=== PATIENT | female | born 1985 | race Hispanic/Latino ===

== ENCOUNTER 2019-03-10 09:00 | Outpatient (RCR) | payer OTHER, SELFPAY ==
--- NOTE | 2019-03-10 09:05 | BH.SGPN.GN ---
Behaviors/Verbalizations/Mental Status: []Client alert and oriented, casually dressed and groomed. Eye contact good. Motor activity appropriate. Speech within normal limits. Affect constricted, mood euthymic. Thoughts linear, logical, no signs of hallucinations or delusions. Reviewed client?s symptom tracker, no risk for suicidal ideation, plan, or intent as of 03/10/19. Client Response/Progress/Benefit: []Client responded well to session, attentive and engaged throughout. Client reports feeling ?hopeful? today. Client shared she has is hopeful to be in PHP and stated, ?I?m going to do the best I can.? Client recently came from inpatient and reported she wants to continue working on staying positive and not self-deprecating. Client reported mental health treatment is new to her, so she feels overwhelmed and stressed at times because client does not want to have setbacks. Client stated she also has a limited time to improve her mental health before returning to work which is stressful to client as well. The group provided client with supportive statements and encouragement. Client appeared to benefit from receiving support and connecting with peers. Client?s first day in PHP. Client to continue PHP to prevent decompensation and increase mood stability to help client return to her baseline of functioning.
--- NOTE | 2019-03-10 10:23 | BH.SGPN.GN ---
Behaviors/Verbalizations/Mental Status: [Client alert and oriented, casually dressed. Eye contact good. Motor activity appropriate. Speech within normal limits, soft. Affect congruent, mood depressed and anxious. Thoughts linear, logical, no signs of hallucinations or delusions. ] Client Response/Progress/Benefit: [Pt receptive of session, engaged in discussion on stress, and indicated connecting with various aspects of the stress curve discussed. Pt expressed that she is often in the distress zone and noted that overwhelming stress is what led to her being hospitalized and ultimately beginning IOP tx. Pt worked with the group to identify impacts of unmanaged stress on physical and mental health. She shared that stress can easily build and lead to burnout or crisis when priorities are not able to continue to be met. She provided specific examples regarding the stress of trying to maintain daily life responsibilities without help. Pt appeared to benefit from gaining awareness of current stressors and learning about the impact stress has on overall wellbeing. Participated in activity identifying current stressors impacting mental health. Pt's current stressors include: communicating with supports, finances, her mental health, and returning to work. Progress noted in pt increased awareness of current stressors and impact they have on management of mental health. Recommended continued IOP tx to decrease depression and reduce anxiety sx, increase healthy coping skills, and prevent decompensation.] Narrative Note: []
--- NOTE | 2019-03-11 09:05 | BH.SGPN.GN ---
Addendum entered and electronically signed by AMY Beltre 11/16/19 09:13: Addendum entered to include missing Group Psychotherapy Session Note #2. Group Topic: []Boundaries # of Participants: []9 Start Time: 10:18am Duration: 52 minutes Production Machine Tender: AMY Gabriel-S Goal of Group: []To increase understanding of importance of boundaries and gain awareness of how boundaries can impact mental health. Staff Interventions: Therapist facilitated group discussion about defining boundaries. Therapist led discussion about importance of boundaries, assisting group members with identifying how boundaries can impact mental health. Therapist provided psychoeducation about the different types of boundaries. Therapist led activity to increase self-awareness of current boundary setting behaviors. Behaviors/Verbalizations/Mental Status: Client alert and oriented, casually dressed and groomed. Eye contact fair. Motor activity appropriate. Speech within normal limits. Affect constricted, mood depressed and anxious. Thoughts linear, logical, no signs of hallucinations or delusions. Client Response/Progress/Benefit: Client responded well to session, attentive and participating in small group discussion. Group identified the benefits to setting boundaries as well as the consequences of not setting healthy boundaries. Client reported she struggles with setting boundaries with others because will put others needs ahead of her own. Client stated when it comes to sharing her thoughts and feelings, she tends to share very little with others. Client engaged during discussion of the different types of boundaries and engaged in the self-assessment activity. Client seemed to benefit from increased awareness how poor boundaries can negatively impact mental health. Client to continue PHP tx to increase healthy coping skills, prevent decompensation, and increase awareness of distorted thoughts Original Note: Behaviors/Verbalizations/Mental Status: []Client alert and oriented, neatly dressed and groomed. Eye contact good. Motor activity appropriate. Speech within normal limits. Affect flat, mood anxious Thoughts linear, logical, no signs of hallucinations or delusions. Reviewed client?s symptom tracker, no risk for suicidal ideation, plan, or intent as of 03/11/19. Client Response/Progress/Benefit: []Client responded well to session, receptive to feedback to support from peers. Client reports feeling ?content and hopeful? today although client shared she has been experiencing nightmares and potential trauma triggers. Client?s stressors are that she is being weaned off a sleep medication and feeling discouraged ?by how long getting better will take.? Client stated she tends to ?give myself time frames to do things? but now client realizes that bettering her mental health will take longer than two weeks. Client receptive to feedback from peers on realistic expectations and self-compassion. Client?s mental health wins include being assertive with her mother who was trying to disrespect client?s boundaries and making it to group today. Client appeared to benefit from connecting with peers and receiving feedback. Progress limited, client?s second day of PHP. Client to continue PHP to prevent decompensation and increase mood stability.
--- NOTE | 2019-03-11 09:41 | BH.MTP_ITS ---
Master Treatment Plan - Patient Information Program Physician:: Dr. Kavon Wilks Primary Therapist:: CATHI Reza - Psychiatric Diagnoses Psychiatric Diagnoses:: Major depression, recurrent, in partial remission; NEDA; adjustment disorder with anxiety and depression Diagnosis Code(s):: F 33.2 - Estimated LOS Estimated LOS (in weeks):: 1 Problem/Goal #1 - Problem/Goal #1 Stated Goal:: Client will increase mood stability and decrease depressive symptoms, and agitation due to Major Depression through PHP Program. Description of Barriers: Stigma associated with mental illness, relationship conflicts, hx of depression, lack of motivation, few supports. Functional Impact: The patient is a 33-year old female who was referred to the partial hospitalization program at [facility] by [facility] following discharge from inpatient hospitalization due to suicidal ideation. Pt reports sx of panic, loss of motivation and interest, isolation, and passive thoughts of . Pt has a history of depression and anxiety. Currently daily functioning is severely impacted by depression and anxiety. Pt reports symptoms effecting ability to work, led to crying spells, impacted relationship with supports, and effected ability to function at baseline. Goal Relevant Strengths/Supports: motivated, personable, sense of humor, willing to try new things to improve mental health sx - Objectives Objective #1 Stated Objective: Client will identify 2-3 triggers and 2-3 coping skills to reduce depressive symptoms that lead to negative thinking Interventions: Through individual and group counseling will help client identify her triggers and teach client various coping strategies to effectively cope with depressive symptoms. Discharge Criteria: Client will have achieved this goal when can identify at least 2 triggers, verbalize two healthy coping strategies and defeat suicidal ideation. Target Date: 03/18/19 Review Date: 03/18/19 Problem/Goal #2 - Problem/Goal #2 Stated Goal:: Client will reduce overall frequency, intensity, and duration of the anxiety so that daily functioning is not impaired. Description of Barriers: Stigma associated with mental illness, relationship con flicts, hx of depression, lack of motivation, few supports. Functional Impact: The patient is a 33-year old female who was referred to the partial hospitalization program at [facility] by [facility] following discharge from inpatient hospitalization due to suicidal ideation. Pt reports sx of panic, loss of motivation and interest, isolation, and passive thoughts of . Pt has a history of depression and anxiety. Currently daily functioning is severely impacted by depression and anxiety. Pt reports symptoms effecting ability to work, led to crying spells, impacted relationship with supports, and effected ability to function at baseline. Goal Relevant Strengths/Supports: motivated, personable, sense of humor, willing to try new things to improve mental health sx - Objectives Objective #1 Stated Objective: Client will learn and implement 2-3 calming skills to reduce overall anxiety and manage anxiety symptoms. Interventions: Through individual and group counseling client will learn calming/relaxation skills and practices relaxation skills daily Discharge Criteria: Client will have achieved this goal when can verbalize at least 2 calming skills and implement those skills. Target Date: 03/18/19 Review Date: 03/18/19
--- NOTE | 2019-03-11 14:02 | PCM.HP.BLA ---
History and Physical Date of Admission: 03/10/19 Chief Complaint: The patient is a 33-year old female who is beginning treatment in the partial hospitalization program at [facility]. She has a history of depression and anxiety. She was recently discharged from [facility] for suicidality. History of Present Illness: The patient was admitted to [facility] from February 28 until March 04, 2019. Prior to admission police had been called to the home and she had asked them if they would kill her if she attacked them. She stated that she had become increasingly depressed over the past 3 weeks prior to admission. She had been stressed out by work and financial problems. Her boss had been off on medical leave and she had to do double the amount of work. Also, she felt overwhelmed by childcare responsibilities at home. She admits that she had no coping skills to deal with her stresses. She improved during her hospitalization and now reports that her depression is better. She further reports that she has had problems with depression most of her life. Her depression had been constant for the past 6months. She further reports chronic problems with low self-esteem. Patient further reports that she has had problems with anxiety most of her life. She is a big worrier and tends to worry about many different things. Her anxiety level has improved since hospital discharge. Past Psychiatric History: She has had only the above psychiatric admission to [place]. She has never made any suicide attempts. She denies any history of cutting behavior. She was first treated 7 years ago for mental health problems through counseling. She first started to receive psychiatric medicines last year. Prior medicines have included Klonopin and Wellbutrin. Current Psychiatric Medications: Celexa 10 mg daily, gabapentin 300 mg twice daily, Latuda 80 mg daily, propranolol 12.5 mg daily Medical History: Patient is obese. She has diabetes treated with glipizide and metformin. She has sleep apnea treated with CPAP. Allergies: Chloramphenicol, vancomycin Family Psychiatric History: The patient's mother and grandmother have had problems with depression and anxiety. Personal/Social History: Patient was born in [place]. She did not wish to discuss when she came to the [place]. He was raised by her mother and reports a poor relationship with her over the years. She said her mother has not been supportive and offered aggressive parenting.. She recently decided to reconnect with her mother. She is an only child. Has an AA degree. 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 She is currently on medical leave. Currently lives with her girlfriend and the girlfriend's 2 children. She has been together with her partner for the past 4 years and reports a really good relationship with her. The partner has 2 children and the patient is helping raise them. There is no history of drug or alcohol problems. Review of Systems: Psychiatry: Improving depression and anxiety. Is not suicidal. There is no psychosis. She is cognitively intact. Constitutional: She is obese and her weight has been steady. Her energy level is improving. Endocrine: She has diabetes. He also has sleep apnea. All other systems reviewed and are negative. Examination: The patient presents as a somewhat socially stiff woman who is in no acute distress. She demonstrates fair social skills. She is appropriately dressed and groomed. Vital signs: Height 5 feet 2 inches, weight 241 pounds, respirations 17. Musculoskeletal: No muscle weakness or joint pain. Her speech is fluent and spontaneous. Her language is intact. Her judgment is fair and her insight is good. He is alert and oriented x3. Affect is neutral and somewhat flat. Her recent and remote memory are intact. She demonstrates a normal attention span and concentration. She has normal thought processes and abstract reasoning. Her associations are intact. There are no hallucinations or delusions and she is not suicidal. She demonstrates normal age-appropriate fund of knowledge. Mental Status Examination: The patient presents as a somewhat socially stiff woman who is in no acute distress. She demonstrates fair social skills. Her thoughts are logical and coherent. She reported improvement in depression and anxiety. She is not suicidal. There is no psychosis. She is cognitively intact. Diagnoses: [] [place] I: Major depression, recurrent, in partial remission; NEDA; adjustment disorder with anxiety and depression [place] II: Deferred [place] III: Obesity, diabetes, sleep apnea Plan: I am continuing the patient's gabapentin, Celexa, Latuda and Tenormin at the current doses. She will participate in the intensive outpatient groups. I will see her again for follow-up.
--- NOTE | 2019-03-11 14:18 | HP.PCM_ITS ---
History and Physical Date of Admission: 03/10/19 Chief Complaint: The patient is a 33-year old female who is beginning treatment in the partial hospitalization program at [facility]. She has a history of depression and anxiety. She was recently discharged from [facility] for suicidality. History of Present Illness: The patient was admitted to [facility] from February 28 until March 04, 2019. Prior to admission police had been called to the home and she had asked them if they would kill her if she attacked them. She stated that she had become increasingly depressed over the past 3 weeks prior to admission. She had been stressed out by work and financial problems. Her boss had been off on medical leave and she had to do double the amount of work. Also, she felt overwhelmed by childcare responsibilities at home. She admits that she had no coping skills to deal with her stresses. She improved during her hospitalization and now reports that her depression is better. She further reports that she has had problems with depression most of her life. Her depression had been constant for the past 6months. She further reports chronic problems with low self-esteem. Patient further reports that she has had problems with anxiety most of her life. She is a big worrier and tends to worry about many different things. Her anxiety level has improved since hospital discharge. Past Psychiatric History: She has had only the above psychiatric admission to [facility]. She has never made any suicide attempts. She denies any history of cutting behavior. She was first treated 7 years ago for mental health problems through counseling. She first started to receive psychiatric medicines last year. Prior medicines have included Klonopin and Wellbutrin. Current Psychiatric Medications: Celexa 10 mg daily, gabapentin 300 mg twice daily, Latuda 80 mg daily, propranolol 12.5 mg daily Medical History: Patient is obese. She has diabetes treated with glipizide and metformin. She has sleep apnea treated with CPAP. Allergies: Chloramphenicol, vancomycin Family Psychiatric History: The patient's mother and grandmother have had problems with depression and anxiety. Personal/Social History: Patient was born in [place]. She did not wish to discuss when she came to the [place]. He was raised by her mother and reports a poor relationship with her over the years. She said her mother has not been supportive and offered aggressive parenting.. She recently decided to reconnect with her mother. She is an only child. Has an AA degree. 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 She is currently on medical leave. Currently lives with her girlfriend and the girlfriend's 2 children. She has been together with her partner for the past 4 years and reports a really good relationship with her. The partner has 2 children and the patient is helping raise them. There is no history of drug or alcohol problems. Review of Systems: Psychiatry: Improving depression and anxiety. Is not suicidal. There is no psychosis. She is cognitively intact. Constitutional: She is obese and her weight has been steady. Her energy level is improving. Endocrine: She has diabetes. He also has sleep apnea. All other systems reviewed and are negative. Examination: The patient presents as a somewhat socially stiff woman who is in no acute distress. She demonstrates fair social skills. She is appropriately d ressed and groomed. Vital signs: Height 5 feet 2 inches, weight 241 pounds, respirations 17. Musculoskeletal: No muscle weakness or joint pain. Her speech is fluent and spontaneous. Her language is intact. Her judgment is fair and her insight is good. He is alert and oriented x3. Affect is neutral and somewhat flat. Her recent and remote memory are intact. She demonstrates a normal attention span and concentration. She has normal thought processes and abstract reasoning. Her associations are intact. There are no hallucinations or delusions and she is not suicidal. She demonstrates normal age-appropriate fund of knowledge. Mental Status Examination: The patient presents as a somewhat socially stiff woman who is in no acute distress. She demonstrates fair social skills. Her t houghts are logical and coherent. She reported improvement in depression and anxiety. She is not suicidal. There is no psychosis. She is cognitively intact. Diagnoses: [] [place] I: Major depression, recurrent, in partial remission; NEDA; adjustment disorder with anxiety and depression [place] II: Deferred [place] III: Obesity, diabetes, sleep apnea Plan: I am continuing the patient's gabapentin, Celexa, Latuda and Tenormin at the current doses. She will participate in the intensive outpatient groups. I will see her again for follow-up.
--- NOTE | 2019-03-11 14:19 | BH.DR.ITP ---
Initial Treatment Plan - Patient Information Visit Information: ADMISSION DATE: EXPECTED LOS: 4-6 weeks Diagnoses:: Recurrent major depression; NEDA; adjustment disorder with anxiey - Problems/Symptoms Problem #1:: Depression Symptom:: History of low mood; anhedonia; sucidiality; low energy Problem #2:: anxiety Symptom:: feelings of anxiety, being overwhelmed; lacking coping skills
--- NOTE | 2019-03-11 16:19 | BH.MDN_ITS ---
Multi-Disciplinary Note - Note 30-min Individual Time Started:: 12:43 Date: 03/11/19 Purpose of session/treatment goals addressed:: The purpose of this session was to build rapport with pt as well as gather information on pt's mental health history, current stressors, symptoms, means for coping, and treatment goals. Eye Contact:: Good Motor Activity:: Appropriate Appearance:: Neat, Casual Speech:: Appropriate Mood:: Anxious, Depressed Affect:: Congruent Thoughts:: Linear, Logical, Racing, No evidence of hallucinations/delusions noted Staff Interventions:: Therapist used active listening and open-ended questions to explore client's current stressors, symptoms, and supports. Gathered background information regarding prior mental health tx history, and explored techniques that have been effective in the past. Therapist used strengths perspective to build rapport and help client identify positives and personal resilience factors. Therapist provided emotional validation and psychoeducation regarding impact of substances in maintaining mental health symptoms. Therapist assisted client in identifying overall treatment goals. Client Response:: Pt receptive of session, willing to discuss factors resulting in referral to [facility] treatment and impacting current mental health functioning. Pt shared that she has struggled with her mental health, specifically that of depression and anxiety, for the past month prior to program admission. Pt reports that financial issues, ongoing relationship tension, childcare problems, and overwhelming occupational stress had culminated to the point of crisis and pt felt ?trapped? with no real way to manage current stressors. Shares she was admitted to [facility] for inpatient hospitalization from February 28- due to increased hopelessness resulting in overwhelming anxiety and suicidal ideation. Reports that her significant other had call the technical project manager when pt expressed feeling suicidal and pt asked the police officers to shoot her. Pt reports that inpatient treatment was helpful and that she has decided she wants to live for both herself and her family. Noted primary stressor as occupational as her boss is on medical leave and pt has been left to complete her bosses duties as well as her own. Additional stressor is finances and pt reports the family is on the verge of bankruptcy. Pt currently endorses symptoms of depression and anxiety including: isolation, avoidance, increased negative thoughts, panic attacks, and irritability. Pt shared her increased anxiety symptoms and physical health have prevented her from working and lead to ongoing conflict with her significant other. She did well to respond to psychoeducation on cycle of depression and noted that while in PHP program she wants to work on maintaining safety and reducing depression and suicidal ideation, improve ability to manage anxiety, and increase self-esteem. Risks/Concerns:: Pt recently discharged from [facility] due to suicidal ideation on 03/04/19. Denies any active suicidal ideation, plan, and intent as of 03/11/19. Future oriented and indicates motivations to live, and ability to maintain safety and able to identify protective factors. Progress Toward Goals/Plan:: Pt new to PHP tx and therefor unable to make much progress. Pt is able to identify factors impacting mental health and reinforcing mh sx, Pt appears motivated to improve healthy coping and shared a desire to reduce depression, increase anxiety management skills, as well as improve overall sense of self-worth. Treatment goals identified to be learning healthy coping skills, reducing anxiety and depression, and improving self-esteem. Client to continue PHP to maintain safety, improve insight and use of healthy coping mechanisms, as well as promote mood stability. Time Stopped:: 13:22
--- NOTE | 2019-03-14 11:25 | BH.SGPN.GN ---
Addendum entered and electronically signed by AMY Beltre 11/16/19 10:26: Addendum entered to include missing Group Psychotherapy Session Note #2. Date: 03/14/19 Start: 1025 Duration: 50 minutes Customer Pricing Manager: Adela Bell Group Topic: Crisis # of Participants: 10 Goal of Group: To increase understanding of a crisis and improve client?s awareness of personal warning signs before crisis. Staff Interventions: Therapist facilitated group discussion about defining a crisis and specifying various events that are considered a crisis. Therapist led the group in discussion about identifying personal warning signs before a crisis and importance of being aware of those signs. Therapist provided support by using active listening and providing feedback. Behaviors/Verbalizations/Mental Status: Client alert and oriented, casually dressed and groomed. Eye contact fair. Motor activity appropriate. Speech within normal limits. Affect constricted, mood dysthymic. Thoughts linear, logical, no signs of hallucinations or delusions. Client Response/Progress/Benefit: Client engaged participant as evidenced by client contributing discussion and listening attentively to others. When processing quote client stated willpower can help you power through a difficult moment. However, client stated she is recognizing sometimes she puts too much pressure on herself which results in a personal crisis. Connected with discussion on how coping with external crisis by using unhealthy coping skills could lead to personal crisis. Client completed the personal warning signs worksheet and identified crisis warning signs. Client reported she does not have any awareness as to what warning signs occur first, stated she is still learning more about herself. Benefited from group by increasing awareness of crisis and personal warning signs. Will continue PHP tx to increase healthy coping, increase self-awareness and prevent decompensation. Original Note: Behaviors/Verbalizations/Mental Status: []Client alert and oriented, neatly dressed and groomed. Eye contact good. Motor activity appropriate. Speech within normal limits. Affect constricted, mood anxious. Thoughts linear, logical, no signs of hallucinations or delusions. Client Response/Progress/Benefit: []Client responded well to session as evidenced by client listening attentively to others and sharing when prompted. Client identified her warning signs for crisis and gained further awareness of her earliest warning signs. Client biggest warning signs included unusual drop in functioning, uncontrollable worries, and negative thinking. Client recognized that awareness of these warning signs can prevent further crisis and help client utilize healthy coping skills to break the cycle. Client created a crisis action plan to help client better manage warning signs for crisis. Client?s plan included coping skills such grounding techniques, healthy distractions, and positive self-talk. Client selected three items that will help her remember these crisis interventions including a rock, a flower, and a post-it note that says ?you got this.? Client appeared to benefit from creating a crisis action plan and increasing her self-awareness. Client to continue IOP to prevent decompensation, reduce anxiety, and improve functioning.
--- NOTE | 2019-03-14 16:20 | BH.MDN ---
Multi-Disciplinary Note - Note 60-min Individual Time Started:: 12:33 Date: 03/14/19 Purpose of session/treatment goals addressed:: Purpose of this session was to assessed current symptoms, stressors, and means for coping. Another purpose was to discuss the cycle of depression and impact of thoughts and behaviors in maintaining depressive sx. Introduced Behavior Activation. Eye Contact:: Fair Motor Activity:: Restless - AEB shifting in seat and looking aroung at items in room Appearance:: Casual Speech:: Appropriate Mood:: Anxious, Depressed Affect:: Congruent Thoughts:: Linear, Logical, No evidence of hallucinations/delusions noted Staff Interventions:: Therapist asked open ended and furthering questions to elicit information regarding current sx, stressors, and daily routine behaviors. Utilized reflective listening and provided empathic responses to validate emotions and frustrations. Provided psychoeducation on the cycle of depression and factors contributing to maintaining depression. Introduced concept of behavior activation and provided pt with homework to begin identifying pleasurable activities. Client Response:: Pt receptive of session, engaged throughout. She discussed ongoing issues in managing sx of depression and described struggling to get out of bed over the weekend. Pt went on to indicate that her partner had asked her to help around the house and that she had been invited to a family get together, however did not have the energy or desire to do either of these. Pt shared creating excuses to stay in bed and avoid doing things with her family. She expressed I feel like I'm letting everyone down and indicated that this often results in her veiwing herself as a burden. Therapist provided psychoeducation on the cycle of depression and pt did well to identify the impact of her isolating behaviors on reinforcing negatve thoughts of self which cause depression. Therapsit and pt spent majority of session discussing strategies for begining to break depressive cycle through behavior activation. Pt indicated that struggling to identify any potential enjoyable activities she could engage in and noted feeling as though everything takes work when all she has the desire to do is sleep. Worked to identify strategies to promote healthy behaviors that will aid in reducing isolation and begin identifying activities she may be willing to try. Pt agreeable to completing the assigned homework of identifying pleasureable activities either from a list or those she comes up and rating them by ease and suspected level of enjoyment. Risks/Concerns:: No risks or concerns at this time. Pt denies active SI, plan, and intent as of 03/14/19. Identifies family as motivations to live and wanting to improve her self-esteem. Indicates ability to maintain safety and willing to reach out for help should she feel unable to at anytime. Progress Toward Goals/Plan:: Some progress noted AEB reports of increased desire to improve mental health sx, decreased hopelessness and denial of SI. Pt does however continue to struggle with significant depression associated with reports of apathy, lack of motivation, and self-deprication. Appears to have good insight into impact self-depricating thoughts and isolative behaviors have on progress. Plan is to remain in PHP level of care to decrease depression, maintain safety and stability, as well as actively work towards improving self esteem. Time Stopped:: 13:22
--- NOTE | 2019-03-15 09:10 | BH.SGPN.GN ---
Behaviors/Verbalizations/Mental Status: [] Eye contact is good. Motor activity is appropriate. Appearance is casual. Speech is Appropriate. Mood is anxious/depressed. Affect is congruent. Thoughts are linear and logical. No evidence of psychosis. Reviewed daily check in sheet and no reports of suicidal ideations. Client Response/Progress/Benefit: [] Pt spoke at time during the group discussion. Attentive. Shared with the group that she had an increase in motivation and energy yesterday stating I didn't lay in bed all day. Groups have helped increased activity and provide structure. Emotion for today is nervous. Shared that she is anxious about returning to work next week. She has been off work since 02/25/19 and prior to her inpatient admission. Reports that she is unsure of the amount of work which awaits her. Continues to report that she will return to work full-time on 03/21/19 and get the most out of what I can in [facility]. Shared that she is working on strategies while in [facility] to help with stressor of returning to work. Benefited from group support and encouragement. Will continue in PHP to maintain safety, increase coping skills, and prevent decompensation. Narrative Note: []
--- NOTE | 2019-03-15 10:04 | BH.MDN_ITS ---
Multi-Disciplinary Note - Note 45-min Individual Time Started:: 08:12 Date: 03/15/19 Purpose of session/treatment goals addressed:: Assessed current symptoms and reviewed homework on identifying pleasurable activities. Created Crisis Safety Plan. Eye Contact:: Good Motor Activity:: Appropriate, Restless - AEB pt bouncing leg, fidgeting in seat Appearance:: Neat, Casual Speech:: Appropriate Mood:: Anxious, Depressed Affect:: Congruent Thoughts:: Linear, Logical, No evidence of hallucinations/delusions noted Staff Interventions:: Therapist asked open ended and furthering questions to elicit information regarding current sx, stressors, and progress. Utilized HI techniques to elicit change behaviors, identify barriers, and complete Crisis Safety Plan. Reviewed homework and discussed importance of identifying warning signs/triggers in preventing depression escalation. Client Response:: Pt met with this therapist to continue making progress in identifying healthy coping mechanisms and strategies for reducing depression. Pt discussed spending time reviewing her homework with her significant other (s/o) on previous night and discussing what she has been working on in both individual and group sessions. Pt indicated that her s/o had been helpful in identifying activities that would be both enjoyable and feasible. She indicated that they are making plans to begin going to the park when the weather is nice and spendi ng time watching the sunset on occassion. Pt additionally discussed identifying going to plays as something she might enjoy but is worried it will become a trauma trigger. Discussed with this therapist her concerns and worked on strategies to prevent identifying all plays with one negative experience when working with someone who cause emotional pain on the set of a play in the past. Therapist introduced Crisis Safety Plan and discussed importance of creating a plan for moments she is struggling with increased depression. Identified warning signs of increased isolation, negative self talk, restlessness, and feeling like a burden. Pt did well to work with therapist on identifying effective coping strategies and protective factors. Indicated that several of the enjoyable activities identified in homework would be helpful in coping such as walking, listening to music, and watching something funny. Discussed postive statements pt may tell herself during times of increased depression. Pt agreeable to review safety plan with her supports and place in an accessible area. Risks/Concerns:: No risks or concerns noted. Denies any active suicidal ideations, plan, or intent as of 03/15/19. Reports thoughts of being a burden though does not report this leading to thoughts of . Protective factors reported. Future-oriented. Reports improved mood since starting IOP. Progress Toward Goals/Plan:: Pt reports progress in decreasing depression and increasing hope, denies any active SI since beginning PHP program.. Limited coping skills to aid in management of depression though is actively working to increase coping repertoire and decrease negative self-talk. Plan is to continue in PHP to increase coping skills, maintain safety, stabilize mood, and improve daily functioning. Time Stopped:: 08:59
--- NOTE | 2019-03-15 10:15 | BH.SGPN.GN ---
Behaviors/Verbalizations/Mental Status: []Client alert and oriented, casually dressed and groomed. Eye contact good. Motor activity appropriate. Speech within normal limits. Affect flat, mood anxious. Thoughts linear, logical, no signs of hallucinations or delusions. Client Response/Progress/Benefit: []Client responded well to session, providing occasional input to discussion. Client commented on the quote and shared the load one carries is ?life...work, kids, money.? Client reported one?s response and emotions determine how we carry the load without breaking. Client reported in order to ?carry the load? one needs coping skills. Client shared healthy coping skills have more benefits. However, most people turn to unhealthy coping skills such as overworking or avoidance because of the short-term relief, but it leads to burnout and more depression. Client engaged in the activity and was able to make the connection that one must have a strong base of internal and external coping skills. Client realized that during the activity her group kept looking for the ?quick fix? which they were able to connect to reverting to using coping skills that are easy, but not always healthy. Client appeared to benefit from increasing awareness of the importance of developing healthy coping skills. Progress noted as client reports increased awareness, but she can continue to benefit from increasing her coping skills to manage depressive symptoms.
--- NOTE | 2019-03-15 11:20 | BH.SGPN.GN ---
Behaviors/Verbalizations/Mental Status: [Pt eye contact good, casually dressed, motor activity appropriate, speech normal rate and tone, mood anxious and depressed, congruent affect, thoughts linear and intact, no evidence of delusions or hallucinations.] Client Response/Progress/Benefit: [Pt mostly attentive to group discussion on different types of coping skills AEB maintaining eye contact and taking notes throughout. She identified connecting with the importance of practicing using different healthy coping skills to reduce difficulty in doing so and improve likelihood of use during crisis. Indicated often struggling with falling back on unhealthy habits of isolation and negative self-talk. Pt seemed to benefit from increasing repertoire of healthy coping skills and displayed progress in ability to recognize types of coping skills she would benefit from further developing. Identified wanting to improve use of self-love related coping skills by practicing self-forgiveness as she feels she is unnecessarily hard on herself. Pt recommended to continue IOP level of care to promote utilization of healthy coping skills, reduce depression, as well as prevent decompensation and maintain safety.] Narrative Note: []
== END 2019-03-15 23:59 ==
LOC: BHPHP 09:00
PROVIDERS: Referring Provider Psychiatry & Neurology Psychiatry; Visit Provider Psychiatry & Neurology Psychiatry
DX: F41.1 Generalized anxiety disorder (principal); F43.23 Adjustment disorder with mixed anxiety and depressed mood; Z79.899 Other long term (current) drug therapy; Z79.84 Long term (current) use of oral hypoglycemic drugs; E66.9 Obesity, unspecified; E11.9 Type 2 diabetes mellitus without complications; G47.30 Sleep apnea, unspecified
CPT/HCPCS: H0035; 90832; 90834; 90837; G0410

== ENCOUNTER 2019-03-16 09:00 | Outpatient (RCR) | payer OTHER, SELFPAY ==
--- NOTE | 2019-03-16 09:10 | BH.SGPN.GN ---
Behaviors/Verbalizations/Mental Status: [] Eye contact is good. Motor activity is appropriate. Appearance is casual. Speech is Appropriate. Mood is depressed. Affect is flat. Thoughts are linear and logical. No evidence of psychosis. Reviewed daily check in sheet and no reports of suicidal ideations or intent Client Response/Progress/Benefit: [] Pt spoke at times during the group discussion. Brought up topic of what to disclose to co-workers when she returns to work. Worried about having a great deal of work when she returns. Fearful this will lead to regression of MH symptoms however reports that she has to return to work full-time next week. Depressed yesterday and isolated, however reports that she downloaded an [facility] and plans to begin some meditation and mindfulness today. Emotion for today is anxious. Limited progress. Pt continues to be adamant to return to work next week. Fearful she will not be able to manage the stress however unwilling to continue in PHP/IOP. Benefited from group feedback. Will continue in PHP to prevent decompensation, stabilize mood, improve functioning, and attempt to transition back to work. Narrative Note: []
--- NOTE | 2019-03-16 10:05 | BH.SGPN.GN ---
Behaviors/Verbalizations/Mental Status: [] Eye contact is good. Motor activity is appropriate. Appearance is casual. Speech is Appropriate. Mood is depressed. Affect is flat. Thoughts are linear and logical. No evidence of psychosis. Client Response/Progress/Benefit: [] Pt was an active participant in group discussion and activity. Worked together with the group to define and identify difference between internal and external conflict. Discussed the benefits of conflict which includes; increases communication, personal growth, conflict addresses issues, and appropriate conflict can increase relationships and improve mental health. Pt worked with group to identify barriers to overcoming conflict which included; fear, perceived failure, belief that truth or conflict will hurt others, dwelling on interactions, catastrophizing conflict, and belief that conflict is failure in relationships. Attentive during psychoeducation on different conflict styles such as avoiding, accommodating, competing, and collaborative. Reviewed benefits and drawbacks to each style. Benefited as he was able to identify and define conflict as well as increase awareness of how conflict style impacts his mental health. Will continue in IOP to maintain safety, prevent decompensation, increase coping skills, stabilize mood, and transition back to work. Narrative Note: []
--- NOTE | 2019-03-16 11:20 | BH.SGPN.GN ---
Behaviors/Verbalizations/Mental Status: []Client alert and oriented, casually dressed and groomed. Eye contact good. Motor activity appropriate. Speech within normal limits. Affect congruent, mood anxious. Thoughts linear, logical, no signs of hallucinations or delusions. Client Response/Progress/Benefit: []Client responded well to session, active participant. Client further processed her conflict resolution style. Client reported she is mostly competing, but she is working on being collaborative. 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 Client reported her relationships have been negatively impacted by being competing, so client has worked to ?make amends.? Client was encouraged to practice being collaborative during the active. Client able to compromise, but also share her perspective. Client helped the group identify things that positively and negatively impact conflict resolution. Client agreed with group that good communication and focusing on one thing at a time helped effectively resolve conflict. Client helped the group identify strategies to better manage conflict and set a goal to take a step back when in conflict to better manage her emotions. Client appeared to benefit from learning conflict resolution strategies and increasing self-awareness. Progress noted as client reports practicing conflict resolution skills to improve her relationships. However, client continues to struggle with depressive symptoms and can benefit from ongoing treatment.
--- NOTE | 2019-03-16 15:13 | BH.MDN ---
Multi-Disciplinary Note - Note 60-min Individual Time Started:: 12:45 Date: 03/16/19 Purpose of session/treatment goals addressed:: Purpose of this session was to assess current sx, stressors, and pt perception of tx goal progress. Another purpose was to begin to work on identifying cognitive distortions and thought-challenging skills. Eye Contact:: Good Motor Activity:: Appropriate Speech:: Appropriate Mood:: Anxious, Depressed Affect:: Congruent Thoughts:: Linear, Logical, No evidence of hallucinations/delusions noted Staff Interventions:: Asked open-ended and furthering questions to elicit information regarding pt perception of sx, stressors, and tx goal progress. Listened reflectively and provided empathic responses to validate pt emotions regarding ongoing sx. Utilized IN techniques to elicit change behaviors. Provided psycho education and handout materials on cognitive distortions, as well as introduced thought challenge strategies. Gave homework to complete a thought log. Client Response:: Pt receptive of session, engaged throughout. Completed homework to review Crisis Safety Plan with her partner and indicated that this had been a positive experience as her partner was able to aide pt in identifying additional resources and positive self-talk statements to use in times of increased depression. Pt shared receiving an unexpected text from work which indicated that her return to work date would be 03/28/19 instead of 03/21/19. She shared initially becoming anxious about this as finances are tight but was able to use thought challenge skills she has learned in php program to challenge herself to see the potential positives. Identified benefits of extended leave as having more time to focus on improving her own mental health and attitude towards self. Noted her biggest concern as ongoing issues with negative self-talk and high expectations of herself. She worked with therapist to review depression cycle and role of thoughts in re-enforcing depressive sx as well as began discussion on cognitive distortions. Pt indicated identifying with a majority of the distorted thought patterns described such as ?all or nothing? thinking, emotional reasoning, catastrophizing, and overgeneralizing. Provided examples of such thoughts experienced as well as personal impact of these thoughts on her own mental health and functioning. Worked with therapist to review and begin applying strategies to challenge negative thoughts. Agreeable to begin tracking thoughts and completing a CBT thought journal. Risks/Concerns:: No risks or concerns noted. Denies any suicidal ideations, plan, or intent as of this date 03/16/19. Protective factors noted, indicates plans to go for a walk with significant other tonight. Progress Toward Goals/Plan:: Progress noted. Pt reports decreased depression and anxiety since previous session. Indicates attributing this to extended leave from work as well increased willingness to begin challenging her own thoughts, applying healthy skills learned in group, and communicating with supports. Shared plans to go for a walk with s/o this evening as well as reach out to her cousin on the phone which indicates reduction in isolative behaviors. Pt recommended to continue PHP level of care to maintain safety, prevent decompensation, and continue to promote change behaviors. Time Stopped:: 13:36
--- NOTE | 2019-03-16 15:23 | BH.MDN_ITS ---
Multi-Disciplinary Note - Note 60-min Individual Time Started:: 12:45 Date: 03/16/19 Purpose of session/treatment goals addressed:: Purpose of this session was to assess current sx, stressors, and pt perception of tx goal progress. Another purpose was to begin to work on identifying cognitive distortions and thought- challenging skills. Eye Contact:: Good Motor Activity:: Appropriate Speech:: Appropriate Mood:: Anxious, Depressed Affect:: Congruent Thoughts:: Linear, Logical, No evidence of hallucinations/delusions noted Staff Interventions:: Asked open-ended and furthering questions to elicit information regarding pt perception of sx, stressors, and tx goal progress. Bri tened reflectively and provided empathic responses to validate pt emotions regarding ongoing sx. Utilized PR techniques to elicit change behaviors. Provided psycho education and handout materials on cognitive distortions, as well as introduced thought challenge strategies. Gave homework to complete a thought log. Client Response:: Pt receptive of session, engaged throughout. Completed homework to review Crisis Safety Plan with her partner and indicated that this had been a positive experience as her partner was able to aide pt in identifying additional resources and positive self-talk statements to use in times of increased depression. Pt shared receiving an unexpected text from work which indicated that her return to work date would be 03/28/19 instead of 03/21/19. She shared initially becoming anxious about this as finances are tight but was able to use thought challenge skills she has learned in php program to challenge herself to see the potential positives. Identified benefits of extended leave as having more time to focus on improving her own mental health and attitude towards self. Noted her biggest concern as ongoing issues with negative self- talk and high expectations of herself. She worked with therapist to review depression cycle and role of thoughts in re-enforcing depressive sx as well as began discussion on cognitive distortions. Pt indicated identifying with a majority of the distorted thought patterns described such as ?all or nothing? thinking, emotional reasoning, catastrophizing, and overgeneralizing. Provided examples of such thoughts experienced as well as personal impact of these thoughts on her own mental health and functioning. Worked with therapist to review and begin applying strategies to challenge negative thoughts. Agreeable to begin tracking thoughts and completing a CBT thought journal. Risks/Concerns:: No risks or concerns noted. Denies any suicidal ideations, plan, or intent as of this date 03/16/19. Protective factors noted, indicates plans to go for a walk with significant other tonight. Progress Toward Goals/Plan:: Progress noted. Pt reports decreased depression and anxiety since previous session. Indicates attributing this to extended leave from work as well increased willingness to begin challenging her own thoughts, applying healthy skills learned in group, and communicating with supports. Shared plans to go for a walk with s/o this evening as well as reach out to her cousin on the phone which indicates reduction in isolative behaviors. Pt recomme nded to continue PHP level of care to maintain safety, prevent decompensation, and continue to promote change behaviors. Time Stopped:: 13:36
--- NOTE | 2019-03-17 09:10 | BH.SGPN.GN ---
Behaviors/Verbalizations/Mental Status: [] Eye contact is good. Motor activity is appropriate. Appearance is casual. Speech is Appropriate. Mood is depressed. Affect is flat. Thoughts are linear and logical. No evidence of psychosis. Reviewed daily check in sheet with no reports of suicidal ideations. Client Response/Progress/Benefit: [] Pt spoke when prompted. Emotion for today is sleepy. Shared with the group that she stayed out bed all day yesterday. Increased energy and completed tasks. Proud of herself. Did not share much more however was attentive during group discussions. Progress noted. Will continue in PHP for today. Expected discharge today with step-down to IOP for tomorrow Narrative Note: []
--- NOTE | 2019-03-17 11:10 | BH.SGPN.GN ---
Behaviors/Verbalizations/Mental Status: []Client alert and oriented, casually dressed and groomed. Eye contact good. Motor activity appropriate. Speech within normal limits. Affect constricted, mood anxious. Thoughts linear, logical, no signs of hallucinations or delusions. Client Response/Progress/Benefit: []Client responded well to session, active participant. Client further processed the group activity and shared that using supports and tuning out the negatives helped the group accomplish the activity. Client completed the fear of failure worksheet and reported that fear of failure is keeping her from ?living life to my fullest potential.? Client reported unrealistic expectations and being too hard on herself are her barriers to overcoming fear of failure. Client helped the group identify strategies to overcome fear of failure and client selected a goal to help her overcome her fear of failure. Client?s goal is to work on increasing awareness of self-sabotaging behaviors such as negative self-talk statements. Client appeared to benefit from gaining awareness and setting a goal to reduce fear of failure. Client showing progress in increasing self-awareness of negative thoughts, but she can continue to increase mood stability. Client to step down from PHP to IOP today.
--- NOTE | 2019-03-17 14:14 | BH.MDN ---
Multi-Disciplinary Note - Note 30-min Individual Time Started:: 12:18 Date: 03/17/19 Purpose of session/treatment goals addressed:: Purpose of this session was to assess current sx, stressors, and pt perception of tx goal progress. Another purpose was to review thought log homework and continue challenging perspective and negative thoughts. Additional topics discussed: G.L.A.D. technique in mindfulness Eye Contact:: Good Motor Activity:: Appropriate Appearance:: Neat, Casual Speech:: Appropriate Mood:: Euthymic, Anxious Affect:: Congruent Thoughts:: Linear, Logical, No evidence of hallucinations/delusions noted Staff Interventions:: Therapist asked open-ended and furthering questions to elicit information regarding pt perception of sx, stressors, and tx goal progress. Reviewed with pt thought log provided as homework and applied CBT techniques to continue to promote increased insight regarding impact of thoughts on behavior and aide pt in applying thought challenge skills. Reviewed the G.L.A.D. mindfulness exercise promoting positive self-talk and gratitude and provided homework for pt to complete exercise. Client Response:: Pt receptive of session, indicated connecting well with topic of today?s group -Fear of Failure. Pt noted that she often struggles with anxiety related to failing and identified that this is often impacted by having unrealistic expectations of herself. She identified using distortions of absolutes and disqualifying the positive when focusing on failures. Pt discussed connecting with the information discussed in individual session regarding cognitive distortions on previous date and reviewed with therapist thought log completed as homework. Pt identified two common distorted thoughts she experiences: ?I?m a failure? and ?I?ll never get better?. Identified the type of distortions these thoughts represent, and alternative reframe statements for each. Pt noted that challenging her mindset helped to improve self-confidence and motivation levels which inspired her to clean her bathroom rather than going to bed after group yesterday. Discussed wanting to continue working to improve ability to focus on the positive and increasing her self-esteem by reducing negative self-talk. Therapist and pt spent remainder of session reviewing the G.L.A.D. mindfulness exercise which focuses on gratitude and self-compassion and pt agreeable to complete as homework. Discussed progress in PHP and reduction of depression and anxiety, as well as treatment goal progress. Given progress, decreased sx acuity, and improved stability pt to discharge from PHP today and begin IOP level of care tomorrow. Risks/Concerns:: No risks or concerns noted. Denies any suicidal ideations, plan, or intent as of this date 03/17/19. Protective factors noted and future oriented AEB expressed plans for the evening. Progress Toward Goals/Plan:: Pt continues to display progress in ability to apply thought challenge and behavior activation skills for depression and anxiety. Pt has not expressed SI since admission or passive thoughts of in the past two days. She reports improved mood and increased motivation which is evidenced by reduced isolation and avoidance, increased engagement with supports, and improved ability to complete responsibilities. Pt expressed feeling some anxiety about maintaining gains following discharge as she is not sure she is ready to apply skills learned independently. Given pt reduction of sx current plan is for her to discharge from [facility] today and begin IOP tx to continue to improve self-confidence, reduce anxiety and depression, as well as maintain stability. Time Stopped:: 12:49
--- NOTE | 2019-03-17 15:12 | BH.DS ---
Discharge Summary - Demographics Date of Admission:: 03/10/19 Discharge Date: 03/17/19 Presenting Problems at Admission:: The patient is a 33-year old female who was referred to the partial hospitalization program at [facility] by [place] following discharge from inpatient hospitalization due to suicidal ideation. Pt reports sx of panic, loss of motivation and interest, isolation, and passive thoughts of . Pt has a history of depression and anxiety. Discharge Diagnoses:: Major depression, recurrent, in partial remission; NEDA; adjustment disorder with anxiety and depression Reason for Discharge:: No longer meets criteria for [facility] level of care. Completed treatment plan goals and reports decrease in severity, duration, and frequency of intrusive thoughts causing anxiety, decreased depression and improved motivation levels, denies SI. - Treatment Progress During Treatment & Response: Since admission to [facility] program, pt has made significant strides in improving management of depression and anxiety. She no longer expresses passive thoughts of and has denied any SI since admission. Pt reports increased levels of hope and motivation. She has expressed increased ability to complete routine and is engaging in activities she enjoys rather than isolating or sleeping during the day. Pt has made progress in ability to identify abd reframe distorted thoughts and is continue to work on application of thought challenging skills. Pt reports improved outlook on her future and decreased guilt regarding thoughts of being a burden. She is continuing to develop anxiety management skills however struggles with prefectionist thinking and unrealistic expectations of self which impact ability to maintain balance and prevent burnout. Pt appears motivated and has been consistently attending and participating in treatment. She indicates connecting with materials and toics reviewed in group and individual settings. Discussed progress with pt and treatment team with plan to step down to [facility] tomorrow. Issues Still to be Addressed:: Continues to report negative intrusive thoughts causing anxiety and impacting view of self. Pt indicates fear of managing stress upon return to work and maintaining gains. Continues to report anxiety and depressive symptoms as well as some fear associated with relapse back into suicidality. Discharge Recommendations/Instructions:: Recommended to step down to [facility] level of care to maintain gains, prevent decompensation, and further stabilize mood. Pt reports improved ability to use healthy skills for managing sx of anxiety and depression, however struggles with ongoing use of distortions impacting view of self and reinforcing anxiety at times. She would benefit from continued support, increased coping skills, and medication management. Discharge Handout: Complete Discharge Handout with client on aftercare options and continuity of care.
--- NOTE | 2019-03-17 15:24 | BH.DS_ITS ---
Discharge Summary - Demographics Date of Admission:: 03/10/19 Discharge Date: 03/17/19 Presenting Problems at Admission:: The patient is a 33-year old female who was referred to the partial hospitalization program at [facility] by [place] following discharge from inpatient hospitalization due to suicidal ideation. Pt reports sx of panic, loss of motivation and interest, isolation, and passive thoughts of . Pt has a history of de pression and anxiety. Discharge Diagnoses:: Major depression, recurrent, in partial remission; NEDA; adjustment disorder with anxiety and depression Reason for Discharge:: No longer meets criteria for [facility] level of care. Completed treatment plan goals and reports decrease in severity, duration, and frequency of intrusive thoughts causing anxiety, decreased depression and improved motivation levels, denies SI. - Treatment Progress During Treatment & Response: Since admission to [facility] program, pt has made significant strides in improving management of depression and anxiety. She no longer expresses passive thoughts of and has denied any SI since admission. Pt reports increased levels of hope and motivation. She has expressed increased ability to complete routine and is engaging in activities she enjoys rather than isolating or sleeping during the day. Pt has made progress in ability to identify abd reframe distorted thoughts and is continue to work on application of thought challenging skills. Pt reports improved outlook on her future and decreased guilt regarding thoughts of being a burden. She is continuing to develop anxiety management skills however struggles with prefectionist thinking and unrealistic expectations of self which impact ability to maintain balance and prevent burnout. Pt appears motivated and has been consistently attending and participating in treatment. She indicates connecting with materials and toics reviewed in group and individual settings. Discussed progress with pt and treatment team with plan to step down to [facility] tomorrow. Issues Still to be Addressed:: Continues to report negative intrusive thoughts causing anxiety and impacting view of self. Pt indicates fear of managing stress upon return to work and maintaining gains. Continues to report anxiety and depressive symptoms as well as some fear associated with relapse back into suicidality. Discharge Recommendations/Instructions:: Recommended to step down to [facility] level of care to maintain gains, prevent decompensation, and further stabilize mood. Pt reports improved ability to use healthy skills for managing sx of anxiety and depression, however struggles with ongoing use of distortions impacting view of self and reinforcing anxiety at times. She would benefit from continued support, increased coping skills, and medication management. Discharge Handout: Complete Discharge Handout with client on aftercare options and continuity of care.
== END 2019-03-17 17:00 | disposition home or self-care (01) ==
LOC: BHPHP 09:00
PROVIDERS: Referring Provider Psychiatry & Neurology Psychiatry; Visit Provider Psychiatry & Neurology Psychiatry
DX: F33.8 Other recurrent depressive disorders (principal); F41.1 Generalized anxiety disorder; F43.23 Adjustment disorder with mixed anxiety and depressed mood; Z79.899 Other long term (current) drug therapy; Z79.84 Long term (current) use of oral hypoglycemic drugs; E66.9 Obesity, unspecified; E11.9 Type 2 diabetes mellitus without complications; G47.30 Sleep apnea, unspecified
CPT/HCPCS: H0035; 90832; 90837; G0410

== ENCOUNTER 2019-03-18 09:00 | Outpatient (RCR) | payer OTHER, SELFPAY ==
--- NOTE | 2019-03-18 09:06 | BH.SGPN.GN ---
Behaviors/Verbalizations/Mental Status: []Client alert and oriented, neatly dressed and groomed. Eye contact good. Motor activity appropriate. Speech within normal limits. Affect constricted, mood anxious. Thoughts linear, logical, no signs of hallucinations or delusions. Reviewed client?s symptom tracker, no risk for suicidal ideation, plan, or intent as of 03/18/19. Client Response/Progress/Benefit: []Client responded well to session, alert and attentive to discussion. Client reports feeling ?anxious? today. Client shared ?I?m just anxious about life in general.? Client stated she has seen some progress in the past two weeks, but she is worried about returning to work, but maintaining a self-care balance. Client?s mental health wins are that she has increased self-awareness that she pushes herself too hard and she is trying to be kinder to herself. Client also went on a walk yesterday rather than isolating which is progress. Client shared she thinks she pushed herself too far too quickly on her walk though, but she shared ?I?m still counting it as progress.? Client appeared to benefit from connecting with peers and reflecting on gains. Progress noted as client?s self-awareness has improved and she reports following through with her goals. Client to continue IOP as she continues to struggle with negative self-talk and a depressed mood.
--- NOTE | 2019-03-18 10:15 | BH.SGPN.GN ---
Behaviors/Verbalizations/Mental Status: []Client alert and oriented, neatly dressed and groomed. Eye contact good. Motor activity appropriate. Speech within normal limits. Affect constricted, mood anxious. Thoughts linear, logical, no signs of hallucinations or delusions. Client Response/Progress/Benefit: []Client was an active participant in group discussion and activity. Group worked together to identify the benefits of setting goals which included; increased motivation, maintenance in progress, accountability, sense of accomplishment, and hope. Client shared ?I feel excited when I accomplish a goal.? Group discussed the barriers to following through with completing a goals which included; high expectations, low motivation, negative self-talk, putting other?s needs first, hopelessness, and not knowing where to start. Client reported in the past she has not allowed herself to celebrate ?the journey of getting to the goal? which resulted in client feeling burnout. Client was attentive during psychoeducation on developing SMART (Specific, Measurable, Achievable, Realistic, Timely) goals as a tool to help with goal setting. Client was positive and helped the group set realistic goals during the activity. Benefited from group by learning effective strategies for goal-setting and identifying barriers to completing goals.
--- NOTE | 2019-03-18 11:20 | BH.SGPN.GN ---
Behaviors/Verbalizations/Mental Status: []Pt alert and oriented, eye contact good, casually dressed, motor activity appropriate, speech normal rate and tone, mood euthymic, congruent affect, thoughts linear and intact, no evidence of delusions or hallucinations. Client Response/Progress/Benefit: []Pt engaged in session as evidenced by providing input throughout discussion and listening attentively to others. Pt identified her short-term SMART goal is to make at least one positive comment towards self each day. Pt stated this goal will benefit her by improving her view of self by intentionally making her look at the positive which she admitted is a struggle for her. Pt identified negative self-talk as one obstacle that could get in the way of her accomplishing her goal. Pt stated she can overcome negative self-talk by using thought challenge. Pt stated another barrier is being too hard on herself which she stated she can overcome this barrier by setting realistic goals. Pt seemed to benefit from creating a SMART goal. Pt to continue IOP level of care to maintain gains, decrease negative self-talk and prevent decompensation. Narrative Note: []
--- NOTE | 2019-03-18 13:05 | PCM.PN.BLA ---
Progress Note Chief Complaint: The patient is a 33-year old female who is currently an active participant in the partial hospitalization program at [facility]. She has a history of depression and anxiety. History of Present Illness/Interim History: The patient reports doing well. Her mood has been up and down, but in general has been fairly good. She still has thoughts at times that she would be better off , but she is able to distract herself from these thoughts and be more positive. She is less depressed than she was. Her anxiety level has improved but is still present at times. She thinks that the intensive outpatient groups have been helpful. She thinks that her current medicines are helpful. Current Psychiatric Medications: Celexa 10 mg daily, gabapentin 300 mg twice daily, Latuda 80 mg daily, propranolol 12.5 mg daily Review of Symptoms: Psychiatry: Some improvement in mood and anxiety. She is not actively suicidal. There is no psychosis. She is cognitively intact. Constitutional: She is obese and her weight has been steady. Her energy level is improving. Mental Status Examination: The patient presents as a pleasant woman of overweight build who demonstrates fair social skills. She is in no acute distress. Her thoughts are logical and coherent. She reported improvement in depression and anxiety. She is not suicidal. There is no psychosis. She is cognitively intact. Diagnoses: [] [place] I: Major depression, recurrent, in partial remission; NEDA; adjustment disorder with anxiety and depression [place] II: Deferred [place] III: Obesity, diabetes, sleep apnea Plan: I am continuing the patient's current doses of gabapentin, Celexa, Latuda and Tenormin. She will now be transitioned to a lower level of care at the intensive outpatient program level. I will see her again for follow-up.
--- NOTE | 2019-03-18 13:13 | PN_ITS ---
Progress Note Chief Complaint: The patient is a 33-year old female who is currently an active participant in the partial hospitalization program at [facility]. She has a history of depression and anxiety. History of Present Illness/Interim History: The patient reports doing well. Her mood has been up and down, but in general has been fairly good. She still has thoughts at times that she would be better off , but she is able to distract herself from these thoughts and be more positive. She is less depressed than she was. Her anxiety level has improved but is still present at times. She thinks that the intensive outpatient groups have been helpful. She thinks that her current medicines are helpful. Current Psychiatric Medications: Celexa 10 mg daily, gabapentin 300 mg twice daily, Latuda 80 mg daily, propranolol 12.5 mg daily Review of Symptoms: Psychiatry: Some improvement in mood and anxiety. She is not actively suicidal. There is no psychosis. She is cognitively intact. Constitutional: She is obese and her weight has been steady. Her energy level is improving. Mental Status Examination: The patient presents as a pleasant woman of overweight build who demonstrates fair social skills. She is in no acute distress. Her thoughts are logical and coherent. She reported improvement in depression and anxiety. She is not suicidal. There is no psychosis. She is cognitively intact. Diagnoses: [] [place] I: Major depression, recurrent, in partial remission; NEDA; adjustment disorder with anxiety and depression [place] II: Deferred [place] III: Obesity, diabetes, sleep apnea Plan: I am continuing the patient's current doses of gabapentin, Celexa, Latuda and Tenormin. She will now be transitioned to a lower level of care at the intensive outpatient program level. I will see her again for follow-up.
--- NOTE | 2019-03-18 13:13 | BH.DR.ITP ---
Initial Treatment Plan - Patient Information Visit Information: ADMISSION DATE: EXPECTED LOS: 4-6 weeks Diagnoses:: Major depression; NEDA; adjustment disorder with anxiety and depression - Problems/Symptoms Problem #1:: Depression Symptom:: low mood, low energy; occasional thoughs of being better off . Problem #2:: anxiety Symptom:: worry, feeling anxious Problem #3:: adjustment disorder Symptom:: problems getting stressed out, feeling overwhelmed
--- NOTE | 2019-03-21 08:46 | BH.MTP_ITS ---
Master Treatment Plan - Patient Information Program Physician:: Dr. Kavon Wilks Primary Therapist:: CATHI Reza - Psychiatric Diagnoses Psychiatric Diagnoses:: Major depression, recurrent, in partial remission; NEDA; adjustment disorder with anxiety and depression Diagnosis Code(s):: F33.2 - Estimated LOS Estimated LOS (in weeks):: 6 Problem/Goal #1 - Problem/Goal #1 Stated Goal:: Client will increase mood stability and decrease depressive symptoms, and agitation due to Major Depression through IOP Program. Description of Barriers: Stigma associated with mental illness, relationship conflicts, hx of depression, lack of motivation, few supports. Functional Impact: The patient is a 33-year old female who was referred to the partial hospitalization program at [facility] by Tashia Mccauley following discharge from inpatient hospitalization due to suicidal ideation. Pt reports sx of panic, loss of motivation and interest, isolation, and passive thoughts of . Pt has a history of depression and anxiety. Currently daily functioning is severely impacted by depression and anxiety. Pt reports symptoms effecting ability to work, led to crying spells, impacted relationship with supports, and effected ability to function at baseline. Goal Relevant Strengths/Supports: motivated, personable, sense of humor, willing to try new things to improve mental health sx - Objectives Objective #1 Stated Objective: Client will identify 2-3 triggers and 2-3 coping skills to reduce depressive symptoms that lead to negative thinking Interventions: Through individual and group counseling will help client identify her triggers and teach client various coping strategies to effectively cope with depressive symptoms. Discharge Criteria: Client will have achieved this goal when can identify at least 2 triggers, verbalize two healthy coping strategies and defeat suicidal ideation. Target Date: 04/28/19 Review Date: 04/14/19 Objective #2 Stated Objective: Identify at least 2-3 negative self-talk messages used to reinforce feelings of worthlessness and replace thoughts with positive messages. Interventions: Therapist will help client identify distorted, negative beliefs about self and replace with more realistic, affirmative messages. Discharge Criteria: Client will have achieved this goal when can verbalize at least 2 negative self-talk messages and effectively replace those thoughts with affirmative messages. Target Date: 04/28/19 Review Date: 04/14/19 Problem/Goal #2 - Problem/Goal #2 Stated Goal:: Stabilize anxiety level while increasing ability to function and decreasing ruminative thoughts that reinforce anxiety on a daily basis through Intensive Outpatient Program. Description of Barriers: Stigma associated with mental illness, relationship conflicts, hx of depression, lack of motivation, few supports. Functional Impact: The patient is a 33-year old female who was referred to the partial hospitalization program at [facility] by Tashia Mccauley following discharge from inpatient hospitalization due to suicidal ideation. Pt reports sx of panic, loss of motivation and interest, isolation, and passive thoughts of . Pt has a history of depression and anxiety. Cu rrently daily functioning is severely impacted by depression and anxiety. Pt reports symptoms effecting ability to work, led to crying spells, impacted relationship with supports, and effected ability to function at baseline. Goal Relevant Strengths/Supports: motivated, personable, sense of humor, willing to try new things to improve mental health sx - Objectives Objective #1 Stated Objective: Client will identify 2-3 anxiety and stress related triggers which contribute to increased symptoms of anxiety. Pt will learn and be able to implement 2-3 healthy coping skills to manage symptoms as shown by decreased DSM-5 cross-cutting score for anxiety. Interventions: Therapist will help client increase awareness of anxiety and stress triggers and educate client on ways stress and anxiety impact overall health. Therapist will teach client various heathy coping skills to manage triggers and prevent further escalation of symptoms. Therapist will assist client in identifying warning signs, triggers, and maladaptive coping skills. Therapist will utilize self-coaching, calming skills, and other CBT techniques to promote anxiety management. Therapist will discuss the benefit of communication and self-awareness on improving anxiety management and reduce avoidance responses. Discharge Criteria: Client will have accomplished this goal when can report at least 2 triggers for anxiety, as well as state using 2 healthy strategies to manage symptoms. Additionally, client will have accomplished this goal when her DSM-5 cross-cutting scores show a decrease in anxiety. Target Date: 04/28/19 Review Date: 04/14/19
--- NOTE | 2019-03-21 09:05 | BH.SGPN.GN ---
Behaviors/Verbalizations/Mental Status: []Client alert and oriented, casually dressed and groomed. Eye contact good. Motor activity appropriate. Speech within normal limits. Affect constricted, mood anxious. Thoughts linear, logical, no signs of hallucinations or delusions. Reviewed client?s symptom tracker, no risk for suicidal ideation, plan, or intent as of 03/21/19. Client Response/Progress/Benefit: []Client responded well to session, attentive and participating. Client reports feeling ?tired and anxious? today. Client shared her stressor today is that she spent all day in bed yesterday which client recognized was triggered by attending [employer]. Client stated when she has days like that it makes her worried about her future and doubtful client will get better mentally. Client able to identify positives, despite recent stressor, to be utilizing positive self-talk when she was with her family and reaching out to support. Client appeared to benefit from normalizing her depression and receiving positive feedback from peers on how to cope. Progress noted in client?s application of self-talk, but she continues to struggle with isolative behaviors that reinforce depression. Client will continue IOP to prevent decompensation and improve daily functioning.?
--- NOTE | 2019-03-21 10:12 | BH.SGPN.GN ---
Behaviors/Verbalizations/Mental Status: [Pt alert and oriented, casually and neatly dressed. Eye contact good. Motor activity appropriate. Speech within normal limits. Affect congruent, mood dysthymic and anxious. Thoughts linear, logical, no signs of hallucinations or delusions.] Client Response/Progress/Benefit: [Pt responded well to session, attentive and providing input throughout. Pt connected with discussion on different types of anxiety, as well as the difference between ?normal? anxiety and anxiety disorders. Pt helped the group identify examples of the various ways anxiety manifests and symptoms associated with thoughts, physical symptoms, and safety behaviors. Pt gained awareness of personal physical symptoms which included: tight chest, increased temperature, tense muscles, fidgeting, agitation, restlessness, and poor concentration. Pt identified avoiding anxious situations, distracting with other things, shutting down, becoming irritable, and isolating, and sleeping as safety behaviors pt has engaged in that provide short term relief but increase anxiety over time. Pt appeared to benefit from gaining insight to safety behaviors and how anxiety manifests itself, as well as harmful impact of safety behaviors on mental health. Appears to be progressing with increasing awareness of mental health symptoms and impact on functioning. Will continue IOP to promote continued skill application, improve self-esteem/motivation levels, improve mood stability, and prevent decompensation.] Narrative Note: []
--- NOTE | 2019-03-21 11:15 | BH.SGPN.GN ---
Behaviors/Verbalizations/Mental Status: []Pt eye contact good, casually dressed, motor activity appropriate, speech normal rate and tone, mood euthymic, congruent affect, thoughts linear and intact, no evidence of delusions or hallucinations. Client Response/Progress/Benefit: []Client responded well to session, listening attentively to others and providing input at times. Client connected with peers during discussion about physical symptoms experience when anxious. Client stated isolation and avoidance are her safety behaviors. Client agreed with peers that one cannot prevent anxious thoughts from occurring, but can learn strategies to manage anxiety. Client appeared to connect with mindfulness and the different ways one can practice mindfulness. Client reported she currently uses music, positive self-talk and breathing techniques as her healthy strategies to manage anxiety. Client created a mindfulness ?menu? and reported she plans to try engaging her 5 senses, body scan, and massage as mindfulness and relaxation techniques to manage anxiety. Client appeared to benefit from practicing in the moment mindfulness techniques. Progress noted as client is showing increased self-awareness and improved mood. Client to continue IOP level of care to maintain gains, decrease negative self-talk and prevent decompensation. Narrative Note: []
--- NOTE | 2019-03-22 09:10 | BH.SGPN.GN ---
Behaviors/Verbalizations/Mental Status: [] Eye contact is good. Motor activity is appropriate. Appearance is casual. Speech is Appropriate. Mood is depressed. Affect is flat. Thoughts are linear and logical. No evidence of psychosis. Reviewed daily check in sheet and no reports of suicidal ideations or intent Client Response/Progress/Benefit: [] Pt participated at times during the discussion. Tearful at times during check-in. Has plans to spend time with her cousin this evening. She is struggling with her emotions and has convinced herself that this is a selffish act as she will not be able to assist with household responsibilities. Group challenged this thought and discussed the benefits of self-care. Continues to be inconsistent in coping with emotions however feels more confident in her ability reframe thoughts and is able to identify some coping skills. Limited progress noted. Still extremely anxius and fearful about returning to work full-time as she believes that her workload will lead to regression. Benefited from group feedback and encouragment. Will continue in IOP to improve coping skills, transitions back to work w/o regression, and prevent decompensation. Narrative Note: []
--- NOTE | 2019-03-22 10:08 | BH.SGPN.GN ---
Behaviors/Verbalizations/Mental Status: []Client alert and oriented, neatly dressed and groomed. Eye contact good. Motor activity appropriate. Speech within normal limits. Affect constricted, mood euthymic. Thoughts linear, logical, no signs of hallucinations or delusions. Client Response/Progress/Benefit: []Client responded well to session, attentive and engaged throughout session. Client connected with the quote and concept of having different chapters in one?s life. Group identified things that can prevent people from moving forward to their next chapter such as; fear of the unknown, anxiety, trauma, comfort, and not knowing how to change. Client helped group discuss the ?chapters of my life? handout and was able to make connections to emotions, thoughts, and actions in each chapter. Client identified herself as in chapter 3 ?because I?m picking myself up out of the hole faster? but client stated she continues to struggle with catching warning signs and using coping skills. Client reported barriers keeping her from getting to chapter 4 such as negative self-talk and difficulty breaking habits. Client appeared to benefit from increasing self-awareness of her current chapter and barriers. Progress noted as client has learned coping skills and has increased self-awareness. Client to continue IOP to further reduce symptoms and improve daily functioning.
--- NOTE | 2019-03-22 11:17 | BH.SGPN.GN ---
Behaviors/Verbalizations/Mental Status: []Pt eye contact good, casually dressed, motor activity appropriate, speech normal rate and tone, mood euthymic, congruent affect, thoughts linear and intact, no evidence of delusions or hallucinations. Client Response/Progress/Benefit: []Pt was an active participant in group discussion. Completed WDEP (Wants, Doing, Evaluate, and Plan) worksheet. Pt identified want as I want to decrease isolation.Able to identify that she is currently attending IOP, being open to spending time with other people, and positive self-talk. Client stated her current actions are helping her move closer to her want. Pt identified her plan to continue decreasing isolation is to do something different with a support person once a week. Benefited from group by identifying thoughts and behaviors that are helping her move forward and developing plan to maintain progress. Will continue in IOP to maintain gains, prevent decompensation, and stabilize mood. Narrative Note: []
--- NOTE | 2019-03-23 11:23 | BH.SGPN.GN ---
Behaviors/Verbalizations/Mental Status: [Pt eye contact good, casually and neatly dressed, motor activity appropriate, speech normal rate and tone, mood euthymic and anxious, congruent affect, thoughts linear and intact, no evidence of delusions or hallucinations.] Client Response/Progress/Benefit: [Pt receptive of session, provided input throughout and was actively listening during discussion on Social Supports. Taking notes and maintaining good eye contact. Pt worked with the group to make connections between the challenge activity and utilizing social supports in daily life. Reflected that a barrier in using current supports is not wanting to be a burden. She remained attentive to discussion on different types of support and benefits each can provide, asking questions and providing reflection. Pt worked with the group to identify strategies for developing new and enhancing current supports. Pt benefited from identifying a type of support she would like to improve and how this would aid in progress towards improving her own mental health. She indicated wanting to enhance spiritual supports to better connect with finding meaning outside of herself. Plans to do so by beginning a journaling practice. Pt to continue IOP level of care to prevent decompensation, reduce anxiety, and maintain stability as she transitions back to work.] Narrative Note: []
--- NOTE | 2019-03-23 16:17 | BH.MDN ---
Multi-Disciplinary Note - Note 30-min Individual Time Started:: 08:36 Date: 03/23/19 Purpose of session/treatment goals addressed:: The purpose of this session was to address client's current symptoms, stressors, and negative thinking patterns reinforcing mental health symptoms. Another purpose was to review anxiety management strategies and discuss ambivalence about returning to work. Eye Contact:: Good Motor Activity:: Appropriate Appearance:: Casual Speech:: Appropriate Mood:: Anxious, Dysthymic Affect:: Congruent Thoughts:: Linear, Logical, No evidence of hallucinations/delusions noted Staff Interventions:: Therapist used active listening and open-ended questions to explore client's current stressors, symptoms, and barriers. Therapist provided empathic responses and supportive feedback as pt discussed current anxieties. Reviewed anxiety management and calming skills with pt. Therapist gently challenged client on distorted thoughts. Therapist used motivational interviewing to promote change behaviors and help client create a pro/con list addressing ambivalence regarding return to work. Client Response:: Client responded well to session, open to meeting with therapist. Client reports she has been feeling slightly improved in her overall mood and is better able to communicate with her supports since beginning treatment. Shared some anxiety about stepping down to IOP tx now and has been reminding herself that this is because she is making progress. Pt went on to indicate successfully reducing anxiety the previous evening when beginning to become overwhelmed about thoughts related to returning to work. Shared that she reminded herself to ?stay in the present moment? and practice a grounding technique via deep breathing. Went on to indicate that doing so made her feel better and less overwhelmed, but that her thoughts keep returning to anxiety about returning to work. Expressed ambivalence about going back to work and feels it would be easier just to quit and go somewhere else. Pt indicated that see knows she needs to work as her family is struggling financially. Pt expressed feeling trapped and depressed when thinking about it. Open to working with this therapist to challenge distorted thought patterns reinforcing anxiety. Willing to complete a pro/con list to address ambivalence about returning to her job. Pt identified; supportive coworkers, consistent pay, bills get paid, and loree is not disappointed as benefits. Increased stress, too much work, and potential crisis as the cons. Ultimately, pt able to identify that she could work to reduce workplace stress and improve ability to manage anxieties through ongoing counseling and skill application. Risks/Concerns:: Client reports passive thoughts of not wanting to wake up, though denies any suicidal ideations, plan, or intent as of this date. Client reports ability to maintain safety and is future oriented. Progress Toward Goals/Plan:: Pt reports ongoing difficulties with managing sx of depression, specifically that of negative thinking impacting self-esteem though is beginning to see improvements in this area. Reports ongoing ruminating thoughts causing anxiety and resulting in desire to avoid returning to work. Pt able to work to begin reframing distortions and identifying small ways to begin reducing anxiety and improving motivation to engage in activities she enjoys Recommended continued IOP tx to prevent decompensation, reduce anxiety, and continue to work towards return to work. Time Stopped:: 09:09
--- NOTE | 2019-03-25 10:12 | BH.SGPN.GN ---
Behaviors/Verbalizations/Mental Status: [Eye contact is good. Motor activity WNL. Appearance is casual. Speech is Appropriate. Mood is anxious, euthymic. Affect is congruent. Thoughts are linear and logical. No evidence of psychosis.] Client Response/Progress/Benefit: [Pt was an active participant in group activity and did well to remain engaged in discussion. Pt worked with the group to define anger and its causes, expressing that she has struggled significantly with managing anger responses in the past. Pt shared that mismanaged anger contributed to her decline in mental health functioning that resulted in [facility] admission. Pt expressed connecting with discussion on internal and external consequences of unhealthy anger responses. She described personal internal impacts of unhealthy anger include; resentment, shame, physical symptoms, guilt, and negative self-talk. Pt reports external impact of unhealthy anger as; damaging personal property, relationship and occupational issues including decreased work performance, decreased engagement with her step children, and conflict with significant other. Benefited from group by increasing awareness of the internal and external impacts of unhealthy anger. Progress noted in pt ability to identify anger related responses and the impact this has on mental health and personal relationships. Continued IOP tx to decrease anxiety, continue to maintain gains, improve consistent application of stress management skills, and prevent decompensation. ] Narrative Note: []
--- NOTE | 2019-03-28 09:05 | BH.SGPN.GN ---
Behaviors/Verbalizations/Mental Status: []Client alert and oriented, neatly dressed and groomed. Eye contact good. Motor activity appropriate. Speech within normal limits. Affect congruent to topic being discussed, mood anxious. Thoughts linear, logical, no signs of hallucinations or delusions. Reviewed client?s symptom tracker, no risk for suicidal ideation, plan, or intent as of 03/28/19. Client Response/Progress/Benefit: []Client responded well to session, engaged and attentive throughout. Client reports feeling ?anxious but not out of control.? Client shared her current stressor is that she is going back to work tomorrow. The group helped client identify coping skills she can use to manage anxiety tomorrow. Client identified her positives which included being able to calm herself down when experiencing anxiety over the weekend and going to the movies with her partner. Client appeared to benefit from identifying coping skills that can help her manage anxiety at work. Progress noted in client?s generalization of coping skills. Will continue IOP to promote mood stability and increase emotional regulation.?
--- NOTE | 2019-03-28 10:15 | BH.SGPN.GN ---
Behaviors/Verbalizations/Mental Status: [] Eye contact is good. Motor activity is appropriate. Appearance is casual. Speech is Appropriate. Mood is depressed. Affect is flat. Thoughts are linear and logical. No evidence of psychosis. Client Response/Progress/Benefit: [] Pt was an active participant in group discussion and activity. Attentive during psychoeducation. Worked with the group to identify benefits to making changes in our lives which included; growth, new opportunities, new experiences, improved relationships, getting ourself out of our comfort zones, increasing our adaptability, and building confidence. Group then identified barriers to change or what keeps us from making changes which included; change can be risky, fear of the unknown, fear of failure, negative thinking, what if thinking, anxiety, and change is scary. Pt participated along with group in activity where they identified and discussed the emotions related to change. Benefited from increased awareness and understaging of emotions, benefits, and barriers related to change. Will continue in IOP to maintain safety, transition back to work, provide support, and prevent decompensation. Narrative Note: []
--- NOTE | 2019-03-28 11:17 | BH.SGPN.GN ---
Behaviors/Verbalizations/Mental Status: [Pt alert and oriented, casual and neat dress, grooming appropriate. Eye contact good. Motor activity appropriate. Speech within normal limits. Affect congruent, mood euthymic. Thoughts linear, logical, no signs of hallucinations or delusions.] Client Response/Progress/Benefit: [Pt responded well to session, actively engaged in discussion and asking questions/providing input throughout. Participated in the challenge activity and helped the group process barriers associated with making change. Pt reported desire to stay liz comfort zone and lack of motivation can prevent change. Identified that focusing on goals and being present helped the group adapt to change. Pt appeared to connect with discussion regarding overcoming the costs of change by identifying potential benefits via decisional balance sheet. Identified a change she would like to make to improve mental health. Pt?s goal is to work on improving being kinder to herself which will help her work towards personal goals. Pt reported potential benefits of change as: increased opportunities for growth, improved relationships, and a more positive outlook. Costs of not making the change included: staying stuck, increased negativity, and not meeting personal goals. Progress noted in pt ability to identify MH benefits of change and strategies for overcoming setbacks. Recommended continued IOP to improve thought challenging, decrease anxiety, increase consistent use of healthy coping skills, and prevent decompensation.] Narrative Note: []
--- NOTE | 2019-03-28 16:19 | BH.MDN ---
Multi-Disciplinary Note - Note 60-min Individual Time Started:: 12:25 Date: 03/28/19 Purpose of session/treatment goals addressed:: Purpose of this session was to assess current symptoms, stressors, and tx progress. Another purpose was to discuss return to work and review strategies for coping with anxiety in the work place. Eye Contact:: Good Motor Activity:: Appropriate Appearance:: Casual Speech:: Appropriate Mood:: Euthymic, Anxious Affect:: Congruent Thoughts:: Linear, Logical, No evidence of hallucinations/delusions noted Staff Interventions:: Therapist asked open ended and furthering questions to gather additional information regarding pt's current symptoms, stressors, and progress in treatment. Therapist used empathic responses to provide emotional validation. Therapist applied ID techniques to promote healthy change behaviors and complete a workplace anxiety management plan. Client Response:: Pt open to meeting with this therapist and engaged throughout session. She reports that she has been trying to challenge her anxious thoughts associated with being back at work. Shared that she has been reminding herself to take things ?one moment at a time? and that she can use her skills to work through anxieties, but that at times these intrusive thoughts are too overwhelming and she desires to sleep to avoid. At times gives into these urges but is doing better with applying opposite action and find a grounding skill to use or talk to her supports. Discussed that she has been thinking about what she can do to remain regulated while in the workplace, noting that her biggest concern is that she does not know what to expect when she returns. Pt and therapist worked together to discuss strategies she could use to remain calm and prevents from escalating to point of crisis when beginning to feel anxious at work. Expressed plans to take ?mini brain-breaks? asway to prevent burnout and indicated she would look-up josy or go for a walk around the office. Indicated that she is doing more to recognize warning signs and triggers, as well making an effort to prevent from thinking about work while at home which has aided in reducing unnecessary anxieties. Risks/Concerns:: None. Denied having any active suicidal ideations, plan, or intent as of this date. Progress Toward Goals/Plan:: Progress noted. Pt indicates increased ability to manage sx of anxiety and depression, though struggles with consistency and at times continues to engage in rumination. Noted that she has seen improvements in ability to reach out to supports, spend less time sleeping to avoid, as well as challenge anxious thoughts. Increased engagement in self-care activities as well. Will continue IOP tx to prevent decompensation, improve anxiety management, and increase mood stability in order to return to work. Time Stopped:: 13:17
--- NOTE | 2019-03-30 09:10 | BH.SGPN.GN ---
Behaviors/Verbalizations/Mental Status: [] Eye contact is good. Motor activity is appropriate. Appearance is casual. Speech is Appropriate. Mood is depressed. Affect is flat. Thoughts are linear and logical. No evidence of psychosis. Reviewed daily check in sheet with report of 1/5 for suicidal ideations and 0/5 for intent. Client Response/Progress/Benefit: [] Pt spoke when prompted. Shared with the group that she had an extremely difficult day yesterday upon returning to work. Reported suicidal ideations while at work due to stressors regarding responsibilities and co-workers. Reports that she arrived to work at 830a and by 10am she had a breakdown. Emotion for today is anxious. Fearful that this will continue. Walked group through her stressors and her emotions while at work yesterday. On a positive notes she reports that most co-workers were supportive and she was proud that she made it through the first day. Feels like a failure due to regression and SI yesterday. Hopeless and does not believe she can get back to full-time work. Group provided feedback and attempted to challenge negative thoughts. Some regression noted per pt. Resurgence of SI after several weeks with none. Will continue in IOP to maintain safety, provide support, prevent decompensation. Therapist notified on SI and regression. Narrative Note: []
--- NOTE | 2019-03-30 10:10 | BH.SGPN.GN ---
Behaviors/Verbalizations/Mental Status: [] Eye contact is good. Motor activity is appropriate. Appearance is casual. Speech is Appropriate. Mood is depressed. Affect is flat. Thoughts are linear and logical. No evidence of psychosis. Client Response/Progress/Benefit: [] Pt was an active participant in group activity and discussion. Group provided input and suggestions when identifying what internal/external forces are and the impact that these forces have on their mental health. Was able to identify strategies used during the experiential activity which could be used in managing internal and external forces such as; creating a plan, teamwork, communication, listening to others, using coping skills when frustrated, learning from mistakes, and recognizing accomplishments. Benefited from increased awareness of difference between internal and external forces on mental health. Will continue in IOP to maintain safety, prevent decompensation, increase confidence in managing emotions, and increase functioning to return to work. Narrative Note: []
--- NOTE | 2019-03-30 11:20 | BH.SGPN.GN ---
Behaviors/Verbalizations/Mental Status: [Pt eye contact good, casually dressed, motor activity appropriate, speech normal rate and tone, mood euthymic and anxious, congruent affect, thoughts linear and intact, no evidence of delusions or hallucinations.] Client Response/Progress/Benefit: [Client receptive of session, listened attentively and provided to discussion. Connected with discussion regarding the positive and negative forces that impact mental wellness. Client identified positive forces that aid in progressing toward mental health goals as: healthy pressure to motivate her, courage, supports, and working on self-help. Client indicated negative forces that prevent progress include: self-criticism, her job, and unrealistic goals. Client stated wanting to focus on use of self-help skills by continuing with IOP tx, being kind to herself, and using coping skills she has learned. Client seemed to benefit from increased awareness of personal positive and negative forces in life and impact they have on mental health and wellness. Client to continue IOP level of care to decrease anxiety, increase healthy coping and communication, as well as prevent decompensation.] Narrative Note: []
--- NOTE | 2019-03-30 12:33 | BH.COMM ---
Communication Note - Communication with Client Communication Note: Due to indicating 1/5 on suicidal ideations on self-report this AM completed a check-in due to determine if there is any risk. Pt denies any active suicidal ideations, plan, or intent. Reports that yesterday was stressful and she had brief suicidal thought which lasted 5 seconds. Saw this as a failure however we reframed this. Reports while stressful she made it through the first day back to work which is she proud of. Reports passive thoughts of this AM which are fleeting. Contracts for safety. Protective factors. Future-oriented.
--- NOTE | 2019-04-01 09:12 | BH.SGPN.GN ---
Behaviors/Verbalizations/Mental Status: [Eye contact is good. Motor activity is appropriate. Appearance is casual. Speech is Appropriate. Mood is anxious. Affect is congruent. Thoughts are linear and logical. No evidence of psychosis. Reviewed daily check in sheet and no reports of suicidal ideations or intent.] Client Response/Progress/Benefit: [Pt was an active participant in group discussion, providing input throughout and receptive of feedback provided by peers. Emotion for today is anxious. Identified mental health wins as using opposite action and challenging herself to get out of the house and walk around the block. Reports plans to work up to going to the park and spending time outside of the house with her family. Additional win identified as being able to ?push away negative thoughts by using positive self-talk?. States current stressor as difficulties in managing anxiety related to work and nervousness in general. Reports progress in her overall ability to recognize warning signs and is beginning to work at finding coping skills to use during high anxiety times. Did well to accept and benefited from group support and encouragement. Will continue IOP level of care to prevent decompensation, reduce anxiety, continue to promote healthy change behaviors, and improve mood management.] Narrative Note: []
--- NOTE | 2019-04-01 11:18 | BH.NA_ITS ---
Physical Data - Vital Signs Pulse Rate: 88 Respiratory Rate: 14 Blood Pressure: 108/62 - Height/Weight Height: 1.57 m Weight:: 109.316 kg Weight in Pounds: 241.0 lbs Current Medication Compliance - Medication Compliance Do you take your medication as prescribed?: Yes Do you need assistance with taking medication?: No Have you had side effects from medication?: No Nutritional History - Appetite Nutritional Instructions:: If client shows signs of a swallowing problem, weight change of 10 pounds or more in the last month, or is on a diabetic diet, the physician will review and request a dietitian consult, as appropriate. All unintentional weight loss will be referred to the physician for decision on need for dietitian consult. Describe your appetite:: Good Have you noticed a change in your eating habits lately?: No Additional nutritional information:: intentional weight loss of 30# in the past year. Functional Assessment - Sleep Pattern Describe any problems with sleeping: Client notes difficulty staying asleep, or falling back to sleep, most nights related to rumination and anxiety - Activities Motor Activity:: Functional Sensory/Communication Assess - Dental Problems Do you have any dental problems?: None - Vision Problems Do you have any vision problems?: Glasses - Hearing Problems Do you have any hearing problems?: Adequate - Communication Problems Do you have difficulty understanding what people are saying?: No Do you have trouble putting your thoughts into words or expressing what you want to say?: No Do people ever have trouble understanding what you say?: No What is your primary language?: [place] Learning Assessment - Learning Barriers Learning Barriers:: Ready to learn Medical Problems/History - Pain Assessment Do you have acute or chronic pain?: No - Female Reproductive Do you think you may be ?: No Have you reached menopause?: No - Additional History Additional comments:: see PMHx in Summary Substance Abuse - Substance Abuse Please describe substance abuse in the last 30 days:: Rare ETOH and tobacco use. Never any illicit substance use. Mental Status Summary - Mental Status Significant Findings/Observations on Appearance and Mood:: Michael is A&Ox4, cooperative with interview, and makes good eye contact. She has appropriate hygiene and grooming, casually dressed. Normal activity. Steady gait. Speech is clear and of normal rate and volume. Mild anxiety. Appropriate affect. Logical associations. Normal process. No symptoms of delusions. Denies hallucinations, HI, and SI. Suicide Assessment - Suicidal Ideation Are you currently or have you been suicidal in the past?: Yes Suicidal Intentional Rating Scale (SIRS): Suicidal thoughts (past) Physician Notification: If Active suicidal thoughts/Will not contract for safety is checked, contact physician and document in the Physician Notification section below. Fall Risk Assessment - Age Age: Less than 60 - Mental Status Mental Status: Willing & able to ask for assistance when needed - Physical Status Physical Status: No problems - Impairments Impairments: None - Elimination Elimination: Continent AND independent - Gait or Balance Gait or Balance: Walks independently - Hx of Falls History of falls in the past 6 months: No known history - Medications/Substances Psychotropics:: Antidepressants, Sedatives Others:: Antihypertensives Medications/substances used within the past 24 hours or ordered to administer: 3 or more of the medications/substances listed above - Total Score Total Points:: 2 Physician Notification - Physician Notification Physician Notified: Kavon Wilks Method of Notification: Face to Face Comments: treatment planning discussion RN Summary of Impressions - Impressions Recommendations: Include psychiatric and medical issues, treatment planning recommendations, and discharge planning needs. Impressions: Psychiatric Issues: MDD, NEDA Impression: General Medical Conditions: LISA, asthma, DM2, morbid obesity w/ BMI>40 - Level of Care How do the client's current symptoms and functional deficits support need for this level of care?: Michael notes a decompensation in her mental health for several weeks, mostly triggered by an increase in responsibilities at work that have her feeling overwhelmed. She has been missing work and isolating due to her anxiety; her sleep is being adversely impacted. IOP will promote gains and prevent further decompensation.
--- NOTE | 2019-04-01 11:25 | BH.SGPN.GN ---
Behaviors/Verbalizations/Mental Status: [] Eye contact is good. Motor activity is appropriate. Appearance is casual. Speech is Appropriate. Mood is depressed. Affect is flat. Thoughts are linear and logical. No evidence of psychosis. Client Response/Progress/Benefit: [] Pt was attentive as well as an active participant in group discussion. Group identified barriers to completing self-care which included; leaving comfort zone, it takes effort, we avoid caring for ourselves when we are struggling, we depend on others to make us feel better, belief that self-care is selfish, feel guilt when caring for self, and time constraints. Attentive during psychoeducation on types of self care which are spiritual, physical, emotional, social, financial, psychological, and professional. Pt discussed her balance of self-care and group brainstormed strategies to overcome barriers to utilizing self-care strategies consistency. Benefited from assessing current self-care balance and developing strategies to overcome barrier to self-care. Will continue in IOP to maintain safety, provided support and treatment during transition back to work, improve concrete coping skills, and prevent decompensation. Narrative Note: []
--- NOTE | 2019-04-04 09:15 | BH.SGPN.GN ---
Behaviors/Verbalizations/Mental Status: []Client alert and oriented, casually dressed and groomed. Eye contact good. Motor activity appropriate. Speech within normal limits. Affect flat, mood anxious. Thoughts linear, logical, no signs of hallucinations or delusions. Reviewed client?s symptom tracker, no risk for suicidal ideation, plan, or intent as of 04/04/19. Client Response/Progress/Benefit: []Client responded well to session, quiet, but participating when prompted. Client reports feeling ?hopeful and scared? today. Client shared her weekend had positives and negatives. Client reports belief she is more relaxed than usual and stated her fingers are not twitching which is positive. Client stated she went on a walk with her uncle this weekend and had a good conversation with him. Client reported it was nice to have his support. Client?s current stressor is that her sleep is erratic right now and when client does not sleep well it can trigger increased depressive symptoms. Receptive to feedback from peers on strategies to prevent decompensation. Appeared to benefit from connecting with peers and reviewing coping skills. Will continue IOP tx to promote mood stability and improve daily functioning.
--- NOTE | 2019-04-04 10:20 | BH.SGPN.GN ---
Behaviors/Verbalizations/Mental Status: []Client alert and oriented, casually dressed and groomed. Eye contact good. Motor activity appropriate. Speech within normal limits. Affect congruent, mood euthymic. Thoughts linear, logical, no signs of hallucinations or delusions. Client Response/Progress/Benefit: []Client responded well to session, mostly taking notes, but occasional input provided. Client appeared to connect with the topic of personal pitfalls and how they can prevent mental health progress. Client agreed with peers that it is important to have awareness of warning signs that lead to pitfalls, but to be cautious to not ruminate on future pitfalls or dwell on past pitfalls. Client identified examples of pitfalls such as isolation, not using coping skills, drinking,?and negative self-talk. Client participated in the group activity and connected that without communication and self-awareness, it is nearly impossible to avoid pitfalls. Client appeared to benefit from increasing self-awareness of how pitfalls impact mental health. Client is demonstrating progress as shown by her report of increased self-awareness. However, client continues to struggle with managing depression and anxiety symptoms and can benefit from ongoing tx.
--- NOTE | 2019-04-04 11:20 | BH.SGPN.GN ---
Behaviors/Verbalizations/Mental Status: []Client alert and oriented, casually dressed and groomed. Eye contact good. Motor activity appropriate. Speech within normal limits. Affect flat, mood anxious, dysthymic. Thoughts linear, logical, no signs of hallucinations or delusions. Client Response/Progress/Benefit: []Client was attentive and engaged in group discussion. Client completed a worksheet where she identified her own personal pitfalls. Personal pitfalls included: not being forgiving of herself, setting unrealistic goals, lack of self-care, self-comparison, and not being flexible. Group worked together to identify strategies to overcome personal and general pitfalls which included; setting small goals, positive self-talk, A.C.E, looking at evidence to challenge negative thoughts, mindfulness, self-reflection, and practicing self-compassion. Client identified one pitfall she wants to work on preventing and one coping skill to help client do this. Client?s pitfall was self-comparison and her coping skill was to practice saying self-compassionate statements. Benefited from identifying personal and general pitfalls and strategies to over these pitfalls. Client has demonstrated progress with identifying distorted thinking patterns, but she continues to struggle with maintaining mood stability.
--- NOTE | 2019-04-06 09:10 | BH.SGPN.GN ---
Behaviors/Verbalizations/Mental Status: [] Eye contact is good. Motor activity is appropriate. Appearance is casual. Speech is Appropriate. Mood is anxious. Affect is congruent. Thoughts are linear and logical. No evidence of psychosis. Reviewed daily check in sheet and no reports of suicidal ideations or intent. Client Response/Progress/Benefit: [] Pt spoke when prompted. Emotion for today is blue. Discussed a set back at work. Reports feeling like a failure and feels like she is disappointing everyone. Intrusive negative thoughts. Asked several times in the group Am I a failure? Exhibiting several cognitive distortions and is struggling to challenge or cope with these thoughts. Reports decompensation. Seeking validation from others as she is not able to validate herself. Group provided feedback, support, and encouragement. No progress noted. Will continue in IOP to maintain safety, prevent decompensation, and increase strategies to manage emotions. Narrative Note: []
--- NOTE | 2019-04-06 10:20 | BH.SGPN.GN ---
Behaviors/Verbalizations/Mental Status: [] Eye contact is good. Motor activity is appropriate. Appearance is casual. Speech is Appropriate. Mood is depressed. Affect is flat. Thoughts are linear and logical. No evidence of psychosis. Client Response/Progress/Benefit: [] Pt was an active participant in group discussion and activity. Along with the group pt identified the benefits to communicating emotions which include; benefits to venting, helps strengthen relationships, helps process conflict and other issues, encourages feedback and solutions, give us a new perspective on ourself and how others perceive us, and encourages honestly. Group identified the challenges to communicating emotions during stressful situations which include; not having the words to express ourselves, difficulty formulating thoughts, lack of trust, assumptions of how others will respond, fear of judgement, and fear of rejection. Attentive during psychoeducation on emotional regulation through self-awareness, self-regulation, and interpersonal effectiveness. Benefited from insight and awareness of the impact of emotions on communication and the importance of communication in stressful situations. Will continue in IOP to transition back to full-time work, increase stress management skills, prevent decompensation, and maintain safety. Narrative Note: []
--- NOTE | 2019-04-06 11:20 | BH.SGPN.GN ---
Behaviors/Verbalizations/Mental Status: []Client alert and oriented, neatly dressed and groomed. Eye contact good. Motor activity appropriate. Speech within normal limits. Affect constricted, mood dysthymic. Thoughts linear, logical, no signs of hallucinations or delusions. Client Response/Progress/Benefit: []Client was mostly an active participant in group discussion, but quiet at times. Attentive during psychoeducation on 4 zones of regulation. Client able to identify how she feels in each zone as well as how she acts in each zone. Also able to identify strategies to incorporate to support herself in each zone which included; deep breathing, 5-senses, setting small goals, talking with a support, and taking a break when needed. Client shared she is in the ?blue zone? or the low alertness zone today because she feels apathetic and lethargic. Client reported she has been using a lot of negative self-talk and could benefit from avoiding going back to bed and from remembering she is not alone. Benefited from group from increased education on zones of regulation or stages of alertness for emotions and healthy coping skills to use for each zone.
--- NOTE | 2019-04-08 09:10 | BH.SGPN.GN ---
Behaviors/Verbalizations/Mental Status: [] Eye contact is good. Motor activity is appropriate. Appearance is casual. Speech is Appropriate. Mood is depressed. Affect is flat. Thoughts are linear and logical. No evidence of psychosis. Reviewed daily check in sheet and no reports of suicidal ideations or intent Client Response/Progress/Benefit: [] Pt spoke when prompted. States I feel like I'm in depression. Discussed current depressive symptoms and negative thoughts. When asked what she could do to decrease severity of depression pt reports I have to challenge these thoughts that I'm a burden to others. She had spoke with her mother yesterday and is constantly seeking validation from others. Per pt her mother told her several times that she is not a burden however pt reports that she does not believe her mother. Seeks validation and then discounts other's opinions. Group discussed cycle which feeds into negative thoughts. While depressed is showing some insight into cognitive distortion and thought reframing skills, however needs guidance from others. Not able to do this skills by herself. Progress noted. Will continue in IOP to maintain safety, prevent decompensation, and transition back to work. Narrative Note: []
--- NOTE | 2019-04-08 10:13 | BH.SGPN.GN ---
Behaviors/Verbalizations/Mental Status: []Eye contact is good. Motor activity is appropriate. Appearance is casual. Speech is Appropriate. Mood is depressed. Affect is flat. Thoughts are linear and logical. No evidence of psychosis. Client Response/Progress/Benefit: []Client responded well to session, attentive and contributing occasionally. Client participated in discussion of the importance of sleep and how it impacts mental health. Group able to identify benefits of sleep on mental health including: improved emotional regulation, improved attention, and better cognition. Client stated when she sleeps too much or not enough, her mental health is negatively impacted. Client participated in the discussion of the ?dos and don?ts? of sleep hygiene. The group identified strategies to improve sleep hygiene including: turning off electronics, reducing caffeine, having a routine, and engaging in relaxation strategies. Client participated in identifying things to avoid or things that could hinder sleep quality including: drinking alcohol before bed, exercising before bed, eating large meals, and spending time on electronics. Appeared to benefit from psychoeducation on sleep hygiene. Will continue IOP tx as she continues to report her symptoms of anxiety and depression are impacting her ability to function at her baseline.
--- NOTE | 2019-04-08 11:01 | BH.MDN ---
Multi-Disciplinary Note - Note 30-min Individual Time Started:: 08:15 Date: 04/08/19 Purpose of session/treatment goals addressed:: Purpose of this session was to assess current symptoms, stressors, and tx progress. Another purpose was to provide psychoeducation on maintenance cycles and opposite action. Eye Contact:: Good Motor Activity:: Appropriate Appearance:: Casual Speech:: Pressured Mood:: Anxious, Depressed Affect:: Congruent Thoughts:: Logical, Circular, No evidence of hallucinations/delusions noted Staff Interventions:: Therapist asked open ended and furthering questions to gather additional information regarding pt's current symptoms, stressors, and progress in treatment. Therapist used empathic responses to provide emotional validation as pt discussed current stressors impacting mental health progress. Provided supportive feedback. Challenged distortions. Provided psychoeducation on maintenance cycles. Therapist applied PR techniques to promote healthy change behaviors and aid pt in setting small self-care goals. Client Response:: Pt open to meeting with this therapist and engaged throughout session. Discussed feeling increasingly agitated and overwhelmed recently which she attributes to stressor of impending return to work. Shared that it ?feels like a timer ticking down? and discussed that those thoughts result in increased depression and desire to avoid. Noted returning to staying in bed most of the day as she does not have the motivation or energy to do anything else. Expressed uncertainty whether it is in part related to her body actually needing more sleep. Reports continued isolation which has increased relationship tension and impacted communication with her significant other. Shared when she does get out of bed she is able to enjoy herself. Worked to discuss maintenance cycles and how giving into initial urge to remain in bed prevents breaking the depression cycle. Pt indicated understanding. Receptive of spending remainder of session discussing strategies to reduce time spent in bed. Expressed connecting with giving herself 10 mindful minutes to herself prior to joining the rest of the family in the morning. Risks/Concerns:: None. Notes passive thoughts of not wanting to wake up but denied having any active suicidal ideations, plan, or intent as of this date. Indicates ability to maintain safety, future oriented. Progress Toward Goals/Plan:: Some regression. Pt reports ongoing mental health sx of anxiety and depression and has recently reverted back to isolative and sleeping to avoid. However, is displaying increased insight and awareness into her warning signs and triggers and expressed willingness to try and return to healthy coping. Discussed that she continues to struggle with significant work related anxiety. Willingness to begin learning coping strategies for anxiety and depression and made small self-care goals. Will continue IOP tx to prevent decompensation, improve anxiety management, and increase mood stability, and return to work.
--- NOTE | 2019-04-08 12:08 | PCM.PN.BLA ---
Progress Note Chief Complaint: The patient is a 33-year old female who is an active participant in the intensive outpatient mental health treatment program at [facility]. She has a history of depression, anxiety, and personality vulnerabilities. History of Present Illness/Interim History: The patient tried to return to work last week, but said it did not go well. Said that she developed suicidal ideation right off the bat. She had been doing fairly well before she went back to work. She had a difficult time describing why she became so destabilized other than saying focus, pressure, stress. She was not able to use any of her IOP skills to help her get through this difficult time. She said that the experience caused her to fall into depression again., However, since stopping working again, her mood has again improved some. Her anxiety level has also improved some. He wishes to continue working in the IOP program to make myself stronger. She denied any problems at home and continues to be in a supportive family. The team has decided to place her back on medical leave and give her more time in the IOP program. Current Psychiatric Medications: Celexa 10 mg daily, gabapentin 300 mg twice daily, Latuda 80 mg daily, propranolol 12.5 mg daily Review of Symptoms: Psychiatry: Improving depression and anxiety. She is not actively suicidal. There is no psychosis. She is cognitively intact. Constitutional: He is obese and her weight has been steady. Her energy level is improving. Mental Status Examination: The patient presents as a somewhat guarded woman of overweight build straights fair social skills. She is in no acute distress. Her thoughts are logical and coherent. She said that her depression and anxiety have improved since last week. She is not actively suicidal. There is no psychosis. She is cognitively intact. Diagnoses: [] [place] I: Major depression, recurrent, in partial remission; NEDA; adjustment disorder with anxiety and depression [place] II: Personality disorder unspecified [place] III: Obesity, diabetes, sleep apnea Plan: I am continuing the patient's current doses of gabapentin, Celexa, Latuda, and Tenormin. She will continue treatment in the intensive outpatient program. I will see her again as needed.
--- NOTE | 2019-04-08 12:19 | PN_ITS ---
Progress Note Chief Complaint: The patient is a 33-year old female who is an active participant in the intensive outpatient mental health treatment program at [facility]. She has a history of depression, anxiety, and personality vulnerabilities. History of Present Illness/Interim History: The patient tried to return to work last week, but said it did not go well. Said that she developed suicidal ideation right off the bat. She had been doing fairly well before she went back to work. She had a difficult time describing why she became so destabilized other than saying focus, pressure, stress. She was not able to use any of her IOP skills to help her get through this difficult time. She said that the experience caused her to fall into depression again., However, since stopping working again, her mood has again improved some. Her anxiety level has also improved some. He wishes to continue working in the IOP program to make myself stronger. She denied any problems at home and continues to be in a supportive family. The team has decided to place her back on medical leave and give her more time in the IOP program. Current Psychiatric Medications: Celexa 10 mg daily, gabapentin 300 mg twice daily, Latuda 80 mg daily, propranolol 12.5 mg daily Review of Symptoms: Psychiatry: Improving depression and anxiety. She is not actively suicidal. There is no psychosis. She is cognitively intact. Constitutional: He is obese and her weight has been steady. Her energy level is improving. Mental Status Examination: The patient presents as a somewhat guarded woman of overweight build straights fair social skills. She is in no acute distress. Her thoughts are logical and coherent. She said that her depression and anxiety have improved since last week. She is not actively suicidal. There is no psychosis. She is cognitively intact. Diagnoses: [] [place] I: Major depression, recurrent, in partial remission; NEDA; adjustment disorder with anxiety and depression [place] II: Personality disorder unspecified [place] III: Obesity, diabetes, sleep apnea Plan: I am continuing the patient's current doses of gabapentin, Celexa, Latuda, and Tenormin. She will continue treatment in the intensive outpatient program. I will see her again as needed.
--- NOTE | 2019-04-13 10:20 | BH.SGPN.GN ---
Behaviors/Verbalizations/Mental Status: [Pt eye contact good, casually dressed, motor activity appropriate, speech normal rate and tone, mood euthymic, anxious, congruent affect, thoughts linear and intact, no evidence of delusions or hallucinations.] Client Response/Progress/Benefit: [Pt was an active participant in group activity and discussion, discussed connecting with the topic of obstacles and solutions. Pt reflected on topic quote and indicated beliefs that we ?normalize the negative? which can lead to creating our own obstacles preventing mental wellness. Pt completed a drawing depicting current reality. Described her reality as alone with her supports nearby cheering her on however she continues to remain stuck in a cloud of depression and anxiety. Discussed that her desired realist would be feeling more present and connected with supports and better able to manage mental health symptoms rather than feeling controlled by them. Pt worked with group to identify difference between internal and external barriers and impacts they can have on reaching desired reality. Indicated lack of awareness has decreased her ability to act on current barriers or learn more effective means of managing them. Benefited from group as pt was able to identify current mental health state and increase understanding of internal and external barriers.] Narrative Note: []
--- NOTE | 2019-04-13 11:26 | BH.SGPN.GN ---
Behaviors/Verbalizations/Mental Status: [Pt eye contact good, casually dressed, motor activity appropriate, speech normal rate and tone, mood anxious, congruent affect, thoughts linear and intact, no evidence of delusions or hallucinations.] Client Response/Progress/Benefit: [Pt was a mostly active participant in group AEB participation in experiential activity as well as providing input throughout discussion. At times she appeared distracted by side conversation however did well to respond to redirection. Pt contributed to discussion on barriers currently keeping them from desired reality and worked to identify her own personal barriers. Identified anxiety, lack of motivation, unrealistic expectations and goals set ?too high?, as well as negative mindset as current barriers to reaching desired reality. Through experiential activity group then worked together to develop strategies to overcome various obstacles. Pt identified applying compassion towards self, using thought challenge techniques, and reminding self that struggling is okay and that she can learn to face and work through struggles. Pt seemed to benefit from increased awareness of barriers and group brainstorming healthy strategies to overcome barriers. Progress noted with pt's ability to identify strategies for overcoming personal barriers as well as increased emphasis on beginning to address and challenge negative perspective. Recommended continued IOP tx to promote use of distress tolerance skills, continue to reduce MH symptoms through healthy skill application, and maintain stability.] Narrative Note: []
--- NOTE | 2019-04-15 09:07 | BH.SGPN.GN ---
Behaviors/Verbalizations/Mental Status: [Pt alert and oriented, casual dress, grooming appropriate. Eye contact good. Motor activity appropriate. Speech within normal limits. Affect congruent, mood euthymic, anxious. Thoughts linear, logical, some indication of rumination, no signs of hallucinations or delusions. Reviewed pt?s dx symptom tracker and pt denies any SI, plan, or intent as of this date] Client Response/Progress/Benefit: [Pt engaged in group discussion, provided limited input throughout however actively listening AEB nodding along during discussion and maintaining good eye contact. Emotion for today is anxious but content. Pt indicated that her current ?mental health wins? include getting to IOP today rather than staying in bed and using positive self-talk to help in successfully doing so. Pt reports that she had not wanted to get up this morning due to increased anxiety and feeling ?crappy?. Attributes this to getting drinks with friends last night and then coming home and going to bed rather than completing the items remaining on her to-do list. Pt benefited from the support of the group in aiding her with challenging anxious thoughts and identifying that she is not a failure if she does not complete every item on the list. Pt made some progress in this area however continues to struggle with self-deprecation and rigid expectations of self that ay be unrealistic to her current mental health state. Pt recommended continued IOP tx to reinforce use of healthy coping skills and continue reduce anxiety, and prevent decompensation.] Narrative Note: []
--- NOTE | 2019-04-15 11:25 | BH.SGPN.GN ---
Behaviors/Verbalizations/Mental Status: []Client alert and oriented, casually dressed and groomed. Eye contact good. Motor activity appropriate. Speech within normal limits. Affect congruent, mood anxious. Thoughts linear, logical, no signs of hallucinations or delusions. Client Response/Progress/Benefit: []Client attentive, did well to remain attentive during discussion and activity. She was contributing and taking notes as group brainstormed on how fixed mindset thoughts experienced in the activity impacted ability to complete the task at hand. Client indicated she had fixed thoughts at the beginning of the activity because of peers? negative outlook on the activity. Client shared, ?I started to predict the future,? but by the end of the activity client was able to learn from her experience. Worked with group to identify important components of a growth mindset. With reflection, client was able to apply cognitive restructuring to reframe fixed thoughts of ?I?m not good enough to change.? Client reframed this to ?I?m learning self-compassion, and this can help me find my potential.? Benefitted from discussing benefits of growth mindset and strategies for reframing fixed thoughts. Client making progress with recognizing her self-depreciating talk, but she continues to struggle with consistent application of coping skills to manage depressive symptoms and anxiety.
[2019-05-06 11:49] VITALS: BP 108/62; PULSE 88; RESP 14
== END 2019-04-15 23:59 ==
LOC: BHIOP 09:00
PROVIDERS: Referring Provider Psychiatry & Neurology Psychiatry; Visit Provider Psychiatry & Neurology Psychiatry
DX: F33.41 Major depressive disorder, recurrent, in partial remission (principal); F43.23 Adjustment disorder with mixed anxiety and depressed mood; R45.851 Suicidal ideations; E66.9 Obesity, unspecified; E11.9 Type 2 diabetes mellitus without complications; F60.9 Personality disorder, unspecified; Z79.899 Other long term (current) drug therapy; Z79.84 Long term (current) use of oral hypoglycemic drugs
CPT/HCPCS: H0035; 90832; 90834; 90837; 90853

== ENCOUNTER 2019-04-18 09:00 | Outpatient (RCR) | payer OTHER, SELFPAY ==
--- NOTE | 2019-03-10 11:20 | BH.SGPN.GN ---
Behaviors/Verbalizations/Mental Status: []Client alert and oriented, casually dressed and groomed. Eye contact good. Motor activity appropriate. Speech within normal limits. Affect congruent, mood dysthymic. Thoughts linear, logical, no signs of hallucinations or delusions. Client Response/Progress/Benefit: []Client was an engaged participant during session, listening to others and provided input at [facility]. Client worked with the group to complete the challenge activity. Client stated she wanted to quit the activity because feeling overwhelmed and frustrated. Client reported when the group started to communicate with each other and make a plan it helped decrease her frustration. Group identified barriers of stress management to include taking on the biggest stressor at once, not asking for help, and avoidance. Client actively listening during discussion about the 4 A's of managing stress. Client seemed to benefit from increased awareness of the impact of stress on mental health and increasing repertoire of stress management strategies. Will continue IOP tx to promote gains in symptom management and improve daily functioning. Narrative Note: []
--- NOTE | 2019-03-11 11:24 | BH.SGPN.GN ---
Behaviors/Verbalizations/Mental Status: [Client alert and oriented, casual dress, hygiene appropriate. Eye contact good. Motor activity appropriate. Speech within normal limits. Affect congruent, mood anxious and euthymic. Thoughts linear, logical, no signs of hallucinations or delusions. ] Client Response/Progress/Benefit: [Pt responded well to session, active participant AEB willingness to provide input, take notes, and ask questions throughout. Pt did well to engage in the boundary self-assessment activity and worked with group to further process. Pt discussed that she has been becoming much more aware of how her difficulties in being overly rigid with emotional boundaries impacted her depression, increased feelings of agitation, and impacted her relationship with her significant other. Appeared to benefit from group discussion on strategies for further improving personal boundaries. Identified wanting to improve her ability to be more flexible with her emotional boundaries and improve ability to openly discuss thoughts and feelings with her significant other rather than continuing to minimize or bottle up her emotions and end up lashing out later. Progress noted in pt ability to identify impact of current boundaries on mental health progress and emotion regulation skills. Pt to continue IOP tx to maintain gains made, improve communication and boundary setting skills, and continue to promote healthy change behaviors.] Narrative Note: []
--- NOTE | 2019-03-14 09:06 | BH.SGPN.GN ---
Behaviors/Verbalizations/Mental Status: [Eye contact is good. Motor activity is appropriate. Appearance is neat and casual. Speech is Appropriate. Mood is anxious and depressed. Affect is congruent. Thoughts are linear and logical. No evidence of psychosis. Reviewed daily check in sheet and no reports of suicidal ideations. ] Client Response/Progress/Benefit: [Preceptive of discussion and engaged throughout, listening attentively. Shared with the group that sheis beginning to feel more positive and less depressed. Reports group setting has aided in challenging negative thoughts and improved overall mood and motivation levels. Emotion for today is encouraged but nervous. Shared that she is hopeful as she feels she has made significant progress in treatment and is better able to manage her mental health sx, but continues to be anxious about returning to work next week. She reports worrying that she will forget her skills or become overwhelmed and fall back into a state of depression and overwhelming anxiety. Worries that she will go back to the same stressors and unmanageable workload. 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 Shared that she is working on strategies while in [facility] to help with stress management and thought challenging. Benefited from group support and encouragement] Narrative Note: []
--- NOTE | 2019-04-18 09:10 | BH.SGPN.GN ---
Behaviors/Verbalizations/Mental Status: [] Eye contact is good. Motor activity is appropriate. Appearance is casual. Speech is Appropriate. Mood is depressed. Affect is flat. Thoughts are linear and logical. No evidence of psychosis. Reviewed daily check in sheet and no reports of suicidal ideations or intent. Client Response/Progress/Benefit: [] Pt spoke when prompted. Attentive however reports low energy today and this past weekend. Shared that went to a public event, surrounded by people, and while it was overwhelming she was able to make it through. Continues to ruminate on returning to work stating I'm watching the clock till I return. Group provided feedback pointing out the importance of focusing on present, enjoying the moment, and developing a strategies and affirmation to counter negative thoughts. Group was able to re-frame pt's thoughts and she reports that it was helpful. Responds well when others reframe however struggles to perform these skills independently. No progress noted. Benefited from group feedback and skills modeling. Will continue in IOP to maintain safety, increase coping strategies and transition back to work full-time. Narrative Note: []
--- NOTE | 2019-04-18 10:25 | BH.SGPN.GN ---
Behaviors/Verbalizations/Mental Status: []Client alert and oriented, casually dressed. Eye contact good. Motor activity appropriate. Speech within normal limits. Affect congruent, mood euthymic. Thoughts linear, logical, no signs of hallucinations or delusions. Client Response/Progress/Benefit: []Pt active participant, provided input throughout discussion and listened attentively to others. Pt contributed comments during group discussion regarding mental health benefits of change and barriers in making those changes. Pt reported if keep ruminating on the past it keep maintain depression and keep one stuck. Pt identified two small personal changes to improve mental health as: acceptance that things happen for a reason and increase self-confidence. Pt identified barriers to making identified changes include: rumination, fear of change, lack of closure from past, and negative self-talk. Pt appeared to benefit from gaining awareness of personal changes that would improve mental health and the barriers keeping client stuck. Progress noted in pt's increased awareness of barriers that impact ability to make changes in life. Pt to continue IOP level of care to increase consistent application of skills, challenge distorted thoughts, and prevent decompensation. Narrative Note: []
--- NOTE | 2019-04-18 11:26 | BH.SGPN.GN ---
Behaviors/Verbalizations/Mental Status: [Eye contact is good. Motor activity is appropriate, at times appearing restless. Appearance is casual. Speech is Appropriate. Mood is euthymic, anxious. Affect is congruent. Thoughts are linear and logical. No evidence of psychosis. ] Client Response/Progress/Benefit: [Pt was an active participant throughout. She did well to participate in group activity, provide ideas, and give input to discussion. Pt actively listening throughout and providing to group discussion identifying connections between activity and strategies for overcoming barriers to making changes. Pt did well to relate this back to promoting personal mental wellness. Identified a specific change she would like to make for her mental health, barriers to making that change, and a SMART goal to reach that change. Shared she would like to work on self-compassion by implementing more positive self-talk statements and increasing willingness to accept compliments without doubting authenticity. Pt discussed that this change would help to feel more confident and reduce thoughts of being a burden. Benefited from group as she was able to identify strategies to overcome barriers to change and create a plan for implementing one small change promoting personal growth. Pt set to continue in IOP to promote change behaviors and reduce anxiety, prevent decompensation, and stabilize mood.] Narrative Note: []
--- NOTE | 2019-04-18 16:19 | BH.MDN ---
Multi-Disciplinary Note - Note 60-min Individual Time Started:: 12:34 Date: 04/18/19 Purpose of session/treatment goals addressed:: Purpose of session was to assess pt's current thoughts, symptoms, stressors, and tx progress. Another purpose was to continue to work with pt on reinforcing use of thought challenge and healthy coping skills. Eye Contact:: Good Motor Activity:: Appropriate Appearance:: Casual Speech:: Appropriate Mood:: Anxious, Dysthymic Affect:: Congruent Thoughts:: Linear, Logical, No evidence of hallucinations/delusions noted Staff Interventions:: Therapist used open ended questions to elicit pt's thoughts, feelings, and stressors. Therapist processed with pt current stressors causing increased anxiety and rumination, as well as assisted with identifying and reframing thoughts maintaining anxiety and depression. Therapist provided support by using active listening and emotion validation. Utilized WI techniques to promote change behaviors. Provided pt with homework to apply thought challenge techniques to 4 anxiety or depression invoking thoughts over the next two days. Client Response:: Pt receptive of session, engaged in discussion throughout. She expressed feeling alright on this date however continues to struggle with significant anxiety regarding return to work and reports feeling stuck in various areas of her life. Pt indicated she has not been applying thought challenge skills to her anxious thoughts related to return to work as she is afraid to think about them. Noted that she does not want to return to work and struggled to identify any positives related to her job. Pt and therapist reviewed her options regarding work and again discussed the long-term consequences of continuing to avoid addressing her work related anxiety. Pt able to recognize that avoidance reinforces anxious thoughts. With coaching, pt did well to identify that she has positive relationships with some of her coworkers and is good at her job when able to manage stress levels. Pt reports that her perspective continues to be focused on the negative and identified the impact of a negative outlook on personal resilience and self-confidence levels. Reports willingness to begin applying reframing strategies when anxious or hopeless thoughts related to work arise. Practiced reframing strategies with therapist in relation to anxiety about watching her partner's children alone tomorrow. Pt reports negative thoughts and lack of motivation continue to be primary barriers. Identified small steps to build motivation such as focusing on benefits of spending time with the kids, feeling accomplished, and working to break the cycle of depression. Risks/Concerns:: Client denies suicidal thoughts, plan or intention to date, 04/18/19. Future focused; supportive family, and reports ability to maintain safety. Progress Toward Goals/Plan:: Progress variable. Pt continues to struggle with consistent application of skills and reports lack of motivation to engage in activities she knows will help break depressive cycle. Pt continues to do well in identifying healthy skills in individual and group setting as well as reframe negative thoughts; however, has difficulties in application outside of tx environment. Inconsistent application may be impacting progress and reinforcing amxiety and self-doubt. Pt recommended continued IOP tx to reinforce application of thought challenging and behavior activation skills, promote change behaviors, and prevent decompensation. Time Stopped:: 13:31
--- NOTE | 2019-04-20 09:05 | BH.SGPN.GN ---
Behaviors/Verbalizations/Mental Status: []Client alert and oriented, casually dressed. Eye contact good. Motor activity appropriate. Speech within normal limits. Affect congruent, mood euthymic. Thoughts linear, logical, no signs of hallucinations or delusions. Reviewed client?s symptom tracker, no risk for suicidal ideation, plan, or intent as of 04/20/19. Client Response/Progress/Benefit: []Pt engaged in session as shown by pt providing input and openly processing with the group. Emotion for today is slightly anxious and positive. Pt noted mental health positive as getting out of the house majority of the day yesterday instead of isolating. Pt identified an additional positive as having a positive conversation with her mom. Pt stated her mom is showing increased acceptance of pt and pt's family, which pt reported she didn't imagine would happen. Pt reported she is glad that she has tried to reestablish a relationship with her mom. Progress noted in application of behavioral activation skills outside of treatment environment. Continued IOP tx recommended to maintain gains, prevent decompensation, and continue to challenge distorted thought patterns. Narrative Note: []
--- NOTE | 2019-04-20 10:25 | BH.SGPN.GN ---
Behaviors/Verbalizations/Mental Status: [Client alert and oriented, casually dressed. Eye contact good. Motor activity WNL. Speech appropriate rate/tone. Affect congruent, mood euthymic, positive, anxious. Thoughts linear, logical, no signs of hallucinations or delusions.??] Client Response/Progress/Benefit: [Pt was attentive and an active participant during group discussion, taking notes and asking questions throughout. Pt brainstormed with the group potential factors that influence personal perspective. Shared that for her a lack of or miscommunication has been a component contributing to her perspective. Pt benefited from connecting how perspective can impact mental health and wellness. Identified that currently communication problems and negative self-talk have led to feeling like a burden and minimizing her stressors. She did well to identify potential benefits of a more positive outlook, noting that a positive perspective can lead to improved hope and confidence in self. Pt did well to work with group to identify strategies for challenging and improving perspective. Reports that continuing with application of self-compassion will aide in maintaining and promoting a more positive perspective. Will continue in IOP to continue to promote healthy change behaviors, prevent decompensation, and increase distress tolerance skills. ] Narrative Note: []
--- NOTE | 2019-04-20 11:26 | BH.SGPN.GN ---
Behaviors/Verbalizations/Mental Status: []Client alert and oriented, neatly dressed and groomed. Eye contact good. Motor activity appropriate. Speech within normal limits. Affect congruent, mood euthymic. Thoughts linear, logical, no signs of hallucinations or delusions. Client Response/Progress/Benefit: []Client responded well to session, attentive and contributing to discussion. Client contributed and took notes as the group discussed the impact perspective has on one?s ability to recognize and utilize strengths. The group identified that a negative perspective causes people to minimize strengths, self-depreciate, and loss confidence in themselves. Client able to identify personal strengths she possesses including: honesty, kindness, hardworking, social awareness, and humor. Client stated she does not always recognize these strengths due to minimizing, dismissing compliments, and self-depreciation. Client helped the group identify strategies to make strengths easier to access. Some of these strategies included: looking at the big picture, self-care, awareness of distortions, keeping track of wins, and looking at the evidence against negative thoughts. Benefited from acknowledging personal strengths and coming up with strategies to access her strengths. Client demonstrating progress in recognizing distortions and spending more time with her supports. However, client continues to struggle with consistent application of coping skills and engaging in avoidance behaviors when anxious.
--- NOTE | 2019-04-22 09:09 | BH.SGPN.GN ---
Behaviors/Verbalizations/Mental Status: [Eye contact is fair to good. Motor activity is appropriate. Appearance is casual, grooming appropriate. Speech is Appropriate rate and tone. Mood is depressed, anxious. Affect is congruent. Thoughts are linear and logical. No evidence of psychosis. Reviewed daily check in sheet and pt reports passive SI which is consistent with baseline, denies plan, or intent. Individual therapist will check-in to further assess for safety.] Client Response/Progress/Benefit: [Pt responded well to session, engaged throughout and open to processing with the group. Pt indicated current emotion as ?disappointed? and discussed that this is due to feeling upset with how she delt with a disagreement with her partner. Noted she was not successful in regulating her emotions and verbally lashed out. Did well to work with group to apply components of self-compassion to the experience and pt indicated ?I can use this to learn from my past so I don?t make the same mistakes again?. Pt appeared to benefit from support provided by the group. Able to identify ways to cope so this setback doesn?t continue to impact progress. Pt progress in ability to identify self-compassion strategies to apply to a setback. Pt recommended continued IOP tx to prevent decompensation, and promote ongoing application of healthy coping skills, and reduce depression.] Narrative Note: []
--- NOTE | 2019-04-25 10:20 | BH.SGPN.GN ---
Behaviors/Verbalizations/Mental Status: [] Eye contact is good. Motor activity is appropriate. Appearance is casual. Speech is Appropriate. Mood is euthymic. Affect is full. Thoughts are linear and logical. No evidence of psychosis. Client Response/Progress/Benefit: [] Pt was an active participant in group discussion and activity. Processed quote of the day with peers. Group worked together to identify barriers to making changes or taking action in their lives which included; lack of self-awareness, old habits, one's mindset, fear of failure, negative emotions (depression, anxiety, etc..), lack of resources, and other people. Group also identified that benefits of change which included; improved relationships, increased communication, improved mental wellness, increased confidence, and feelings of accomplishment. Discussion on the costs of not taking action or making changes which included; being stuck, no growth, lose friendships, impairs functioning, and not changes is a form of self-sabotage. Pt attentive during psychoeducation on the zones of change. Benefited from group through awareness of barriers and benefits to taking action towards mental wellness. Narrative Note: []
--- NOTE | 2019-04-25 11:23 | BH.SGPN.GN ---
Behaviors/Verbalizations/Mental Status: [Client alert and oriented. Appearance is casual, appropriate grooming. Eye contact good. Motor activity WNL. Speech appropriate rate and tone. Affect congruent. mood euthymic, anxious. Thoughts linear, logical, no signs of hallucinations or delusions.] Client Response/Progress/Benefit: [Pt provided input and actively engaged in discussion AEB providing input and taking notes throughout. Pt benefitted from reflecting upon the mental health benefits of taking small actionable steps towards addressing barriers and promoting healthy change in daily life. Indicated that the egg throw activity had been emotionally releasing and motivating to begin making changes in own life. Pt did well to work with the group on completing the example Change Action Plan and applying the skills learned to pt own Action Plan. Pt identified wanting to make strides towards decreasing isolation. Pt shared this would improve relationships with supports, reduce depression, and continue to improve motivation levels. Pt shared she would begin with more consistently making plans with her partner outside of the house. Pt progress noted in ability to identify concrete and realistic steps to addressing barriers to actionable change identified. Recommended continued IOP tx to prevent decompensation, maintain gains, and promote healthy change behaviors.] Narrative Note: []
--- NOTE | 2019-04-25 16:36 | BH.MDN_ITS ---
Multi-Disciplinary Note - Note 45-min Individual Time Started:: 09:15 Date: 04/25/19 Purpose of session/treatment goals addressed:: Purpose of this session was to assess current symptoms, stressors, and treatment goal progress. Another goal was to discuss strategies to maintain gains and prevent decompensation during times of boredom. Eye Contact:: Good Motor Activity:: Appropriate Appearance:: Neat, Casual Speech:: Appropriate Mood:: Euthymic Affect:: Full Thoughts:: Linear, Logical, No evidence of hallucinations/delusions noted Staff Interventions:: Therapist asked open ended and furthering questions to gather additional information regarding pt's current symptoms, stressors, and tx progress. Therapist used empathic responses, provided supportive feedback, and commended pt for application of coping skills. Therapist applied HI techniques to promote healthy change behaviors. Client Response:: Pt open to meeting with this therapist and engaged throughout session. Noted feeling proud of herself on this date as she was able to ?comeback from a setback? following session on Thursday in which pt had shared deprecating thoughts resulting in increased depression and suicidal ideation. Noted she was able to process with her significant other and clear things up. Shared reminding herself when feeling overwhelmed that ?a thought is just a thought? and ?just because I think it does not mean it?s true?. Went on to [facility] that although she fought negative thoughts, she struggled with increased feelings of lethargy and apathy. Able to provide insight that she wasn?t depressed but rather bored which had been impacting overall mood. Expressed that apathy and boredom have led to depression in the past and was willing to problem solve potential activities she could engage in to reduce boredom. Discussed small goal of doing one pleasurable activity daily to improve and maintain mood. Discussed strategies for increasing motivation to do so and pt shared plans to involve her spouse in these activities as a means of making it more enjoyable and likely to hold her accountable. Risks/Concerns:: None. Pt denies active SI, plan, or intent as of this date. 04/25/19. Progress Toward Goals/Plan:: Progress noted. Reports improved overall mood and ability to challenge negative thought over the weekend. Reports no longer experiencing thoughts of or suicidal ideation and was able to communicate in healthy ways with her supports over the weekend. Reduced irritability. Reports however continuing to struggle with lethargy and lack of motivation which continues to impact motivation levels. Recommended continued treatment to increase motivation and engagement in opposite action activities, improve healthy skill application and consistency, as well as prevent decompensation. Time Stopped:: 10:03
--- NOTE | 2019-04-26 09:07 | BH.SGPN.GN ---
Behaviors/Verbalizations/Mental Status: []Client alert and oriented, casual dress, hygiene tended to. Eye contact good. Motor activity appropriate. Speech within normal limits. Affect congruent, mood anxious. Thoughts linear, logical, no signs of hallucinations or delusions. Reviewed client?s symptom tracker, no signs of suicidal ideation, plan, or intent as of today. Client Response/Progress/Benefit: []Pt was engaged in session as evidenced by pt listening attentively to others and sharing with the group. Emotion for today is anxious. Pt noted mental health positive as making it to IOP this morning despite not wanting to get out of bed this morning. Pt stated she is disappointed in herself for not waking up as she had planned so she could get certain tasks done this morning. Pt identified additional positive as cleaning out her bedroom and starting to write down distorted thoughts and reframing thoughts. Pt indicated current stressor is returning to work next week. Pt stated she realizes she hates her job because no longer feels a sense of security and safety. Progress noted with pt following through with goal to clean bedroom and start to challenge distortions. Continued IOP tx recommended to maintain gains, continue use of healthy coping skills and prevent decompensation. Narrative Note: []
--- NOTE | 2019-04-26 10:20 | BH.SGPN.GN ---
Behaviors/Verbalizations/Mental Status: [] Eye contact is good. Motor activity is appropriate. Appearance is casual. Speech is Appropriate. Mood is euthymic. Affect is full. Thoughts are linear and logical. No evidence of psychosis. Client Response/Progress/Benefit: [] Pt was an active participant in group discussion. Processed quote of the day with peers. Group discussed the MH benefits to having open and clear communication with support and providers which included; it avoids mind-reading, decreases chances of confusion, helps us get our needs met, helps us get our goals met, helps us manage our symptoms (as support understands appropriate responses). Group also discussed the barriers that tend to impact clear and open communication which include; depression, anxiety, fear, embarrassment, pride, guilt, negative thoughts, feeling that if others know who we truly are they will not like us, and being vulnerable. Pt was attentive during psycho-education on communications styles (aggressive, passive, passive-aggressive, and assertive). Also provided input on the pros and cons to each communication style. Narrative Note: []
--- NOTE | 2019-04-26 11:15 | BH.SGPN.GN ---
Behaviors/Verbalizations/Mental Status: []Client alert and oriented, casually dressed and groomed. Eye contact good. Motor activity appropriate. Speech within normal limits. Affect congruent, mood euthymic. Thoughts linear, logical, no signs of hallucinations or delusions. Client Response/Progress/Benefit: []Client active participant AEB providing input throughout and attentive to others. Client reported in the past she was mostly an aggressive communicator, especially with her partner. Client shared now she is trying to be more assertive and understanding which has helped her relationships. Client engaged in activity and able to connect how indirect communication negatively impacts mental health and relationships. Client identified her communication goal is to start using language and terms that her supports understand, so they can better help client. Client seemed to benefit from increased insight into how her communication style impacts her mental health and relationships. Client progressing in increased self-awareness and report of improved communication. Client to continue IOP as she reports ongoing issues with managing anxiety and depressive symptoms.
--- NOTE | 2019-04-27 09:10 | BH.SGPN.GN ---
Behaviors/Verbalizations/Mental Status: [] Eye contact is good. Motor activity is appropriate. Appearance is casual. Speech is Appropriate. Mood is anxious. Affect is congruent. Thoughts are linear and logical. No evidence of psychosis. Reviewed daily check in sheet and no reports of suicidal ideations or intent. Client Response/Progress/Benefit: [] Pt was an active participant in group discussion. Emotion for today is anxious but confident. Shared that she is extremely nervous and uneasy about returning to work next week. States that she feels more prepared and confident than she did last time which is a positive. She reports that she has a return to work strategy for her MH symptoms. Group provided feedback and some suggestions regarding through re-framing. Pt reports being optimistic. Progress noted. Benefited from group support, encouragement, discussions, and feedback. Will continue in IOP to prevent decompensation and transition back to work. Narrative Note: []
--- NOTE | 2019-04-27 11:21 | BH.SGPN.GN ---
Behaviors/Verbalizations/Mental Status: [Client alert and oriented, casually dressed and appropriately groomed. Eye contact good. Motor activity appropriate. Speech within normal limits. Affect congruent, mood dysthymic, anxious. Thoughts linear, logical, no signs of hallucinations or delusions.] Client Response/Progress/Benefit: [Client responded well to session, engaged in activity, asking questions, actively listening, as well as providing input to discussion. Group identified the benefits of addressing stigma which included; increased self-confidence and self-acceptance, improved willingness to ask for help, improved relationships and feeling more supported, and less self-deprecation. Client helped the group identify thoughts and behaviors people engage in that reinforce stigma. Client reported she has struggled with negative self-talk due to unrealistic expectations, shame regarding her mental health struggles, and labeling which reinforces stigma in pt life. Group brainstormed strategies to combat social and perceived stigma which included; changing personal language used, sharing positive mental health related media, communicating with supports to help them better understand mental health, and increasing psychoeducation of self and others. Client reported she will practice reducing self-deprecating talk and use empowering language when speaking to herself or thinking about her own mental health as a means to combat stigma. Appeared to benefit from increasing awareness of ways current behaviors may reinforce stigma and how to combat stigma. Will continue IOP tx to further reduce depression and improve mood stability, as well as increase the use of calming skills.] Narrative Note: []
--- NOTE | 2019-05-03 09:10 | BH.SGPN.GN ---
Behaviors/Verbalizations/Mental Status: [] Eye contact is good. Motor activity is appropriate. Appearance is casual. Speech is Appropriate. Mood is euthymic. Affect is full. Thoughts are linear and logical. No evidence of psychosis. Reviewed daily check in sheet and no reports of suicidal ideations or intent. Client Response/Progress/Benefit: [] Pt was an active participant in group discussion. Emotion for today is positive. Pt shared that went back to work yesterday and was able to manage her emotions effectively. Reports that work was a positive experience. Co-workers were supportive and she is optimistic. She had been dreading this day for several weeks and is proud of herself for utilizing return to work plan developed in [facility] to manage the anxiety, stress, and irritability associated with returning to work. Discussed that she is identifying cognitive distortions and negative thoughts and utilizing thought-stopping and reframing to minimize the impact her feeling and actions. Feels hopeful. Progress noted per pt report. Will continue in IOP to aid in transitions back to work this week. Narrative Note: []
--- NOTE | 2019-05-03 10:15 | BH.SGPN.GN ---
Behaviors/Verbalizations/Mental Status: []Pt eye contact good, casually dressed, motor activity appropriate, speech normal rate and tone, mood euthymic, congruent affect, thoughts linear and intact, no evidence of delusions or hallucinations. Client Response/Progress/Benefit: []Pt engaged in session as evidenced by pt listening to others and providing input throughout. Pt appeared to connect with others comments about the way an individual reacts to a problem can worsen or create problems. Pt reported that she struggles with taking on other people's problems which increases her stress because adds more for her to do. Pt identified lack of motivation can either impact her ability to problem solve or impacts ability to follow through with solution to problem. Pt worked cooperatively with peers during problem solving activity, needed encouragement to focus on the positive. Pt seemed to benefit from learning about problem solving method and rehearsing problem solving skills in the moment. Pt to continue IOP level of care to decrease negative thinking, increase utilization of healthy coping, and prevent decompensation. Narrative Note: []
--- NOTE | 2019-05-03 11:18 | BH.SGPN.GN ---
Behaviors/Verbalizations/Mental Status: [Eye contact is good. Motor activity is appropriate. Appearance is casual. Speech is Appropriate. Mood is euthymic, positive. Affect is congruent with mood. Thoughts are linear and logical. No evidence of psychosis.] Client Response/Progress/Benefit: [ Pt was an active participant in group activity and discussion, providing support and willing to take on a leadership role during the activity. Pt processed challenge activity with fellow participants and made connections with the barriers and supports to problem solving encountered. Pt expressed that negative self-talk and impatience can be a barrier to effective problem-solving. She completed a problem-solving worksheet in which pt identified a current problem impacting mental health as negative self-talk and developed a [id number] plan to address this problem which was reviewed within the small group. Pt identified barriers to effective problem solving include: lack of motivation, not believing positive self-statements, and fear. Pt did well to brainstorm strategies for addressing this and was open to feedback from the group, as well as able to identify a small step in addressing the problem. Reports plans to evaluate when negative self-talk pops up and replace with positives. Benefited from group as she was able to create a personalized plan which pt identified barriers and steps to work on a mental health problem. Will continue in IOP tx to maintain gains and promote application of healthy coping skills, as well as continue to maintain stability. ] Narrative Note: []
--- NOTE | 2019-05-05 09:10 | BH.SGPN.GN ---
Behaviors/Verbalizations/Mental Status: [] Eye contact is good. Motor activity is appropriate. Appearance is casual. Speech is Appropriate. Mood is anxious. Affect is congruent. Thoughts are linear and logical. No evidence of psychosis. Reviewed daily check in sheet and no reports of suicidal ideations or intent. Client Response/Progress/Benefit: [] Pt was an active participant in group discussions. Emotion for today is anxious. Shared that she continues to maintaining or managing her mood at work well. Transition back to work is going well. She is anxious about returning to work full-time next week and has started at times to ruminate or negative predict the future about next week. She reports that she has been able to identify these distortions and is actively utilizing skills to challenge. She believes that this has been helpful as have her other coping skills. Using skills consistently however benefits from group or therapist guiding her thought-stopping and challenging. Still needs some reassurance. Progress noted per pt report. Benefited from group feedback, encouragement, and support. Will continue in IOP to maintain gains, prevent decompensation, and assist with coping while transitioning back to work. Narrative Note: []
--- NOTE | 2019-05-05 10:13 | BH.SGPN.GN ---
Behaviors/Verbalizations/Mental Status: []Client alert and oriented, neatly dressed and groomed. Eye contact good. Motor activity appropriate. Speech within normal limits. Affect constricted, mood euthymic. Thoughts linear, logical, no signs of hallucinations or delusions. Client Response/Progress/Benefit: []Client was an active participant in group discussion and activity. Group worked together to define coping skills and discussed the differences between healthy vs unhealthy coping skills as well as the importance of balance. Client shared unhealthy coping skills are easier to use and harder to break away from. Group identified unhealthy coping skills as; bottling up emotions, lashing out, blaming others, shutting down, isolating, drinking, and smoking. Reported the consequences of unhealthy coping skills as; issue/problem is not addressed or solved, hurt relationships, cause increased guilt and shame, and they maintain unhealthy cycles of mental health symptoms. Client engaged in the group activity and was able to connect the benefits of having a strong base of coping skills. Benefited through increased education and awareness of the impact of healthy vs unhealthy coping skills on mental wellness as well as the importance of having a strong base of healthy internal and external healthy coping skills. Client to discharge from [facility] tomorrow, as she has made significant strides towards her treatment goals. Client can benefit from one more [facility] day to reinforce healthy coping skills and establish aftercare.
--- NOTE | 2019-05-05 11:17 | BH.SGPN.GN ---
Behaviors/Verbalizations/Mental Status: [Client alert and oriented, casually dressed and groomed. Eye contact good. Motor activity appropriate. Speech within normal limits. Affect congruent, mood euthymic, anxious. Thoughts linear, logical, no signs of hallucinations or delusions.] Client Response/Progress/Benefit: [Client responded well to session, engaged throughout and providing ideas during group brainstorming. Client appeared to connect with the activity from second group and helped the group identify benefits of having a strong foundation of internal and external coping skills. Client shared that without healthy internal skills you will have nothing to fall back on when external supports are unable to help and with end up in crisis. Client helped the group discuss the different categories of coping skills and provided examples. Client reported it is important to have a variety of coping skills for different types of stressors. Client created a coping skills ?menu? for the five categories of coping skills. Client selected using supports, challenging negative thoughts, positive self-talk, spending time with her kids, coloring, music and therapy. Client appeared to benefit from increasing repertoire of healthy coping skills. Progress noted in client?s improved ability to identify potential healthy coping skills for managing mental health sx. Client to continue IOP to promote gains and improve mood stability, as well as prevent decompensation.] Narrative Note: []
--- NOTE | 2019-05-06 08:27 | BH.IGGP_ITS ---
Aftercare Plan - Demographics Treatment End Date:: 05/06/19 Psychiatrist:: Kavon Wilks Psychiatrist Office #:: [phone] [facility] Therapist:: Enma Cantu Therapist Phone #:: [phone] - Plan Details Progress/Aftercare Plan Details:: You have shown significant progress in many areas of your life since you started working on your mental health more! You have increased self-awareness of warning signs, triggers, distorted thought patterns, unrealistic expectations, and the impact of emotions on thoughts. The amount of effort you have put into applying the skills you have learned really shows through the growth we have all seen in you! Since beginning the program, you have been able to begin challenging the negative self-talk and practice more active self-compassion. You are putting effort into practicing ?opposite action? by challenging yourself to get out of bed even on the days you don?t want to, be more engaged with the kids even when your thoughts are elsewhere and continue to work through your anxiety at work and home. It is clear that you are able to identify those unhelpful thought patterns easier compared than when first started program and reframe or challenge yourself when you start to worry about other people?s expectations. Remember: progress is not linear ? it takes time and is often accompanied by setbacks or disappointments. Only you can decide whether the setbacks tear you down or help to lift you up. Each moment is an opportunity to continue to learn about yourself and to experience something new. Strategies for Success:: 1. Check-in with yourself! Remember to pay attention to when you are becoming overwhelmed, stressed, or upset. Warning signs are there to warn us - they can?t help if we aren?t paying attention to them! Journal - can use to keep track of weekly positives, stressors, daily check-in, identify what you are grateful for, etc. Having a journal with daily or weekly check-ins gives you something tangible to reflect on when having moments of struggle to remind you of the progress you are making and how far you have come. 2. Look back at [facility] binder to see if there are things you need to remind yourself of or skills to take with you each day. 3. Setting SMART daily and/or weekly goals. Remember delvalle part is to make goals manageable by setting realistic expectations! Reward self for success - even the small ones! 4. Continue to be aware of distorted thought patterns and challenge those thought patterns. Focus on what is in your control and how you can apply new skills to improve yourself and relationships with others. 5. Taking a deep breath before responding to a situation can help you think before you act. This will give you a chance to calm the mind and the heart and allow you to communicate more rationally. 6. Remember it is okay to be in the welsh! Rigid and all or nothing thinking can led to increased conflicts, being closed minded, and high expectations of self/others. Reflect on how flexible thinking and open mindedness has benefitted you as a whole. 7. Plan for known triggers like which can increase depressive symptoms. Identify activities and events can be involved in to increase connections and get you out of the house. 8. Communicate! People can't read your mind...remember to ask for what you need or needs won't get met. - Appointments Appointments/Referrals to Other Services:: Continue to communicate with your supports and ask for help! Keep up with regular counseling appointments with Selena Waller at [facility] and consistent medication management as well. I also encourage you to get involved in your area and see what [facility] has to offer that you may not be aware of. Sometimes there are unique opportunities that we just haven't discovered.
--- NOTE | 2019-05-06 09:05 | BH.SGPN.GN ---
Behaviors/Verbalizations/Mental Status: []Client alert and oriented, casually dressed and groomed. Eye contact good. Motor activity appropriate. Speech within normal limits. Affect congruent, mood euthymic. Thoughts linear, logical, no signs of hallucinations or delusions. Reviewed client?s symptom tracker, no risk for suicidal ideation, plan, or intent as of 05/06/19. Client Response/Progress/Benefit: []Client responded well to session, engaged and providing hopeful statements. Client reports feeling ?hopeful? today on her last day of IOP. Client identified progress she has made since starting IOP. Client?s self-reported progress included; challenging negative thoughts, increased awareness of self-depreciation, reduced isolation, and improved mood. Client stated to maintain progress she plans to work on consistently applying coping skills and going through her IOP binder to remind herself of coping skills. Client reported feeling grateful for the program and shared with peers ?you get out of it what you put in.? Client appeared to benefit from reflecting on her progress and reduction in symptoms. Client to discharge from [facility] today as she has made significant progress towards her treatment goals.
--- NOTE | 2019-05-06 10:15 | BH.SGPN.GN ---
Behaviors/Verbalizations/Mental Status: [Eye contact is good. Motor activity is appropriate. Appearance is casual. Speech is Appropriate. Mood is euthymic, anxious. Affect is congruent with mood. Thoughts are linear and logical. No evidence of psychosis.] Client Response/Progress/Benefit: [Pt actively engaged, provided input to the discussion and able to take on an active role in the group activity. Reflected on the quote and aided in defining topic of resilience, noting that to her resilience is learned as ?experiences shape who we are/become, but it?s how we see/deal with them that influences us. Pt did well to work with fellow participants in making connections between activity and barriers/supports to development of a resilient lifestyle. She was able to work within the small group setting to discuss factors in building Resilience and benefitted from brainstorming strategies for developing and promoting a resilient lifestyle. Pt identified that ?fostering meaningful connections? helps to make us feel we are not alone and increases willingness to ask for the help we may truly need. Pt progress noted in increased ability to apply material learned and reflect upon importance of maintaining consistent with application of thought challenging and reframing skills in improving confidence. Recommended continued individual outpatient counseling to prevent decompensation and promote ongoing skill application, as well as increase use of supports.] Narrative Note: []
--- NOTE | 2019-05-06 10:44 | CON_ITS ---
Progress Note Chief Complaint: The patient is a 33-year old female who is an active participant in the intensive outpatient mental health treatment program at [facility]. She has a history of depression, anxiety and personality vulnerabilities. History of Present Illness/Interim History: The patient reports doing well. Her mood has been good. Her anxiety has been manageable. She is optimistic about the future. She thinks that the intensive outpatient groups have been helpful and have helped her to change my outlook. I am seeing things more positive, and am challenging my thoughts. She said that she started working again last Thursday and she feels positive about returning to work. Current Psychiatric Medications: Celexa 10 mg daily, gabapentin 300 mg twice daily, Latuda 80 mg daily, propranolol 12.5 mg daily Review of Symptoms: Psychiatry: Improving depression and anxiety as per HPI. She is not suicidal. There is no psychosis. She is cognitively intact. Constitutional: She is obese and her weight has been steady. Her energy level is improving. Mental Status Examination: The patient presented as a pleasant filing woman of overweight build who demonstrates improved social skills. She is in no acute distress. Her thoughts are logical and coherent. She reported improvement in depression and anxiety. She is not suicidal. There is no psychosis. She is cognitively intact. Diagnoses: [] Safford I: Major depression, recurrent, in remission; NEDA; adjustment disorder with anxiety and depression S[place]ord II: Personality disorder unspecified S[place]ord III: Obesity, diabetes, sleep apnea Plan: I am continuing the patient's current doses of medications as prescribed by her outside provider. She is completing her participation in the intensive outpatient groups. I will see her again as needed. 05/06/19 1101 <Electronically signed by Kavon Reynolds> Date _ Kavon Wilks MD
--- NOTE | 2019-05-06 11:20 | BH.SGPN.GN ---
Behaviors/Verbalizations/Mental Status: []Client alert and oriented, casually dressed. Eye contact good. Motor activity appropriate. Speech within normal limits. Affect congruent, mood anxious. Thoughts linear, logical, no signs of hallucinations or delusions. Client Response/Progress/Benefit: []Client engaged in session as evidenced by client providing input during discussion and listening attentively to others. Client engaged in the group activity as shown by client working cooperatively with others and sharing ideas with others. When processing activity client appeared to connect with others comments about how the group was able to be successful by utilizing the 10 different resilient factors. Client reported she wants to work on keeping things in perspective by writing down a stressful moment and identifying the size of the problem to help decrease catastrophizing. Client stated this skill will particularly be useful while she is at work because tends to catastrophize stressors which increases her anxiety and makes it hard to function at work. Client appeared to benefit from identifying goal to improve personal resilience factors. Client has made progress since starting IOP and will discharge from [facility] level of care today. Narrative Note: []
--- NOTE | 2019-05-06 11:55 | BH.DS ---
Discharge Summary - Demographics Date of Admission:: 03/21/19 Discharge Date: 05/06/19 Presenting Problems at Admission:: The patient is a 33-year old female who was stepped down to IOP level of care following successful completion of the partial hospitalization program on 03/17/19. Pt originally referred to Behavioral Health by Tashia Mccauley following discharge from inpatient hospitalization 02/28/19-03/04/19 due to suicidal ideation. Pt reports sx of panic, loss of motivation and interest, isolation, and passive thoughts of . Pt has a history of depression and anxiety. Following completion of PHP program, pt was to return to work full-time and continue with counseling on an outpatient bases; however, began to experience an increase in mental health sx upon return to work. Pt reports that following her return to work on 03/21/19 she began to experience increased anxiety and panic, feeling overwhelmed and not ready to return, difficulties concentrating, shame, self-deprecation, and passive thoughts of . Pt ultimately opted to take additional time off work and complete the IOP portion of the programto further aid in managing mental health sx. Discharge Diagnoses:: Major depression, recurrent, in partial remission; NEDA; adjustment disorder with anxiety and depression Reason for Discharge:: No longer meets criteria for IOP level of care as she has successfully completed treatment plan goals and reports decrease in severity, duration, and frequency of intrusive thoughts causing anxiety and depression, denies passive thoughts of , and reports increases in ability to practice positive self-talk and compassion. - Treatment Progress During Treatment & Response: Progress noted during treatment. Pt maintained consistent attendance and was an active participant in groups and individual counseling. Was initially reluctant to follow through with strategies for managing symptoms of anxiety and depression such as opposite action and positive self-talk; however, did well to challenge herself to do so and has displayed progress in ability to get out of bed and motivation to ?do the anxious thing?. Pt showed a 10 point reduction in symptoms based on the DSM-5 cross-cutting scales going from a 29 to a 19. Scores decreased in depression by 25% and anxiety by 30%. Completed treatment plan goals to develop a concrete and individualized anxiety management plan for return to work and when overwhelmed with her homelife. She has increased self-awareness of warning signs, triggers, distorted thought patterns, unrealistic expectations, and the impact of emotions on thoughts. Pt reports that thought challenging and using self-compassion practices have been most helpful in improving mental health sx. She no longer reports regular passive thoughts of and reports increased connectivity to supports and herself, which is additionally reflected in DSM cross-cutting scores as results for personality functioning decreased by 75%. Issues Still to be Addressed:: Recommended continued treatment to maintain gains, prevent decompensation, and to continues to work on effective strategies to manage anxiety and depression. Maintaining consistent with application of healthy skills and not using down time to avoid will be most important moving forward. Work is continues to be the biggest stressor and she will need continued support, encouragement, and counseling to ensure success. Discharge Recommendations/Instructions:: [facility] Pt is additionally established with [facility] for ongoing medication management as well. Discharge Handout: Complete Discharge Handout with client on aftercare options and continuity of care.
== END 2019-05-06 14:00 | disposition home or self-care (01) ==
LOC: BHIOP 09:00
PROVIDERS: Referring Provider Psychiatry & Neurology Psychiatry; Visit Provider Psychiatry & Neurology Psychiatry
DX: F33.41 Major depressive disorder, recurrent, in partial remission (principal); F41.1 Generalized anxiety disorder; F43.23 Adjustment disorder with mixed anxiety and depressed mood
CPT/HCPCS: H0035; 90832; 90834; 90837; 90853